=== PATIENT | female | born 1960 | race African-American/Black ===

== ENCOUNTER 2017-04-27 12:24 | Inpatient (IN) | payer OTHER ==
[2017-04-27] MEDS ORDERED: ALBUTEROL SO4 0.083% IH SOL 2.5 MG/3 ML VIAL.NEB. NEB ONE ×2 (13:21→15:23)
[2017-04-27] MEDS ORDERED: morphine CARPU-JECT 2 MG/1 ML DISP.SYRIN IVPUSH ONE ×2 (13:21→20:43)
[2017-04-27] MEDS ORDERED: predniSONE 20 MG TABLET (UD) PO ONE (13:25)
--- NOTE | 2017-04-27 13:27 | PDOC ---
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 The patient describes chest pain as pressure-like, radiating to her neck and arm, 10/10 in severity, associated with SOB and lightheadedness. Patient has been taking 8 Nitroglycerin tablets daily with no relief. Patient states her chest pain is consistent with the MIs she had in the past and presented to Dr. Dean office today. Patient was sent in by PCP for further evaluation. She denies headache or dizziness. She denies fever, chills, nausea, vomit, diarrhea or constipation. She denies dysuria, frequency, urgency or hematuria. Allergies: benztropine mesylate, haloperidol lactate, aspirin, penicillins Past surgical history: CABG Social history: Former smoker (quit 3 years ago) PCP: Dr. Em <Moira Arroyo - Last Filed: 04/27/17 16:32> - General History Source: Patient, Old Records Exam Limitations: No Limitations <Hung Gonzalez - Last Filed: 04/27/17 16:43> - General Chief Complaint: Chest Pain Stated Complaint: CHEST PAIN Time Seen by Provider: 04/27/17 12:28 Past History <Moira Arroyo - Last Filed: 04/27/17 16:32> - Past Medical History Asthma: Yes Cardiac Disorders: Yes (MD, HEART SX.) CVA: Yes (CVA x 7, LEFT SIDED WEAKNESS) COPD: Yes Diabetes: Yes GI Disorders: Yes (GERD) HTN: Yes Hypercholesterolemia: Yes Psychiatric Problems: Yes (ANXIETY) - Surgical History Cardiac Surgery: Yes (STENT: 2013) Orthopedic Surgery: Yes - Immunization History Td Vaccination: No Immunization Up to Date: No - Psycho/Social/Smoking Cessation Hx Anxiety: Yes Suicidal Ideation: No Smoking Status: Yes Smoking History: Former smoker Years of Tobacco Use: 0 Have you smoked in the past 12 months: Yes Number of Cigarettes Smoked Daily: 4 If you are a former smoker, when did you quit?: 2012 Cigars Per Day: 0 'Breaking Loose' booklet given: 10/04/14 Hx Alcohol Use: No Drug/Substance Use Hx: No Substance Use Type: None Hx Substance Use Treatment: No <Hung Gonzalez - Last Filed: 04/27/17 16:43> - Past Medical History Allergies/Adverse Reactions: Allergies Allergy/AdvReac Type Severity Reaction Status Date / Time benztropine mesylate Allergy Severe Swelling Verified 04/27/17 13:34 [From Cogentin] haloperidol lactate Allergy Severe Difficulty Verified 04/27/17 13:34 [From Haldol] Breathing aspirin Allergy Verified 04/27/17 13:34 Penicillins Allergy Verified 04/27/17 13:34 Home Medications: Ambulatory Orders Amlodipine Besylate 10 mg PO DAILY 12/20/15 Atorvastatin Ca [Lipitor] 80 mg PO DAILY 12/20/15 Chlorthalidone 25 mg PO DAILY 12/20/15 Exenatide Microspheres [Bydureon Pen] 1 amp IM WEEKLY 12/20/15 Gabapentin [Neurontin] 200 mg PO TID 12/20/15 Insulin Detemir [Levemir Flextouch] 50 units SQ BID 12/20/15 Metoprolol Succinate [Toprol Xl] 100 mg PO DAILY 12/20/15 Nitroglycerin 0.4 mg SL Q2H PRN 12/20/15 Ticagrelor [Brilinta] 90 mg PO BID 12/20/15 Divalproex *ER* [Depakote *ER* -] 500 mg PO HS 05/11/16 FENTANYL 25mcg PATCH [DURAGESIC 25mcg PATCH -] 1 each TD Q72H 05/11/16 Pantoprazole Sodium [Protonix -] 40 mg PO DAILY 05/11/16 Valsartan [Diovan] 40 mg PO DAILY #30 tablet 05/14/16 Review of Systems - Review of Systems Able to Perform ROS?: Yes Comments:: 04/27/17 13:40 GENERAL/CONSTITUTIONAL: No fever or chills. No weakness. HEAD, EYES, EARS, NOSE AND THROAT: No change in vision. No ear pain or discharge. No sore throat. CARDIOVASCULAR:+ chest pain. + shortness of breath. RESPIRATORY: No cough, wheezing, or hemoptysis. GASTROINTESTINAL: No nausea, vomiting, diarrhea or constipation. GENITOURINARY: No dysuria, frequency, or change in urination. MUSCULOSKELETAL: No joint or muscle swelling or pain. No neck or back pain. SKIN: No rash NEUROLOGIC: No headache, vertigo, loss of consciousness, or change in strength/ sensation. ENDOCRINE: No increased thirst. No abnormal weight change. HEMATOLOGIC/LYMPHATIC: No anemia, easy bleeding, or history of blood clots. ALLERGIC/IMMUNOLOGIC: No hives or skin allergy. <Rufina Arroyohel - Last Filed: 04/27/17 16:32> *Physical Exam - Vital Signs Last Vital Signs Temp Pulse Resp BP Pulse Ox 97.8 F 74 20 105/87 100 04/27/17 13:31 04/27/17 13:31 04/27/17 13:31 04/27/17 13:31 04/27/17 13:31 - Physical Exam Comments: 04/27/17 13:40 GENERAL: Awake, alert, and fully oriented, in no acute distress HEAD: No signs of trauma EYES: PERRLA, EOMI, sclera anicteric, conjunctiva clear ENT: Auricles normal inspection, hearing grossly normal, nares patent, oropharynx clear without exudates. Moist mucosa NECK: Normal ROM, supple, no lymphadenopathy, JVD, or masses LUNGS: + Diffuse expiratory wheezing. Breath sounds equal, clear to auscultation bilaterally. HEART: Regular rate and rhythm, normal S1 and S2, no murmurs, rubs or gallops ABDOMEN: Soft, nontender, normoactive bowel sounds. No guarding, no rebound. No masses EXTREMITIES: Normal range of motion, no edema. No clubbing or cyanosis. No cords, erythema, or tenderness NEUROLOGICAL: +Decreased sensation in LUE and LLE secondary to prior stroke. Cranial nerves II through XII grossly intact. Normal speech. Gait deferred. SKIN: Warm, Dry, normal turgor, no rashes or lesions noted. <Rufina Arroyohel - Last Filed: 04/27/17 16:32> Heart Score/ECG Review - History History: Highly suspicious - Electrocardiogram EKG: Non specific repolarization disturbance - Age Age: 45-65 - Risk Factors Based on the list above the patient has:: >/=3 risk factors or Hx atherosclerotic disease #1 ECG reviewed & interpreted by me at: 12:35 04/27/17 13:29 NSR 81, n ostd/santiago, TWI V1-V2 (new compared to last year), QTC 446 msec <Hung Gonzalez - Last Filed: 04/27/17 16:43> ED Treatment Course - LABORATORY CBC & Chemistry Diagram: 04/27/17 13:16 04/27/17 13:16 <Moira Arroyo - Last Filed: 04/27/17 16:32> - LABORATORY CBC & Chemistry Diagram: 04/27/17 13:16 04/27/17 13:16 - RADIOLOGY Radiology Studies Ordered: Category Date Time Status CHEST X-RAY PORTABLE* [RAD] Stat Radiology 04/27/17 13:16 Ordered <Hung Gonzalez - Last Filed: 04/27/17 16:43> Medical Decision Making - Medical Decision Making 04/27/17 15:14-- Dr. Sanders paged via phone answering service. 04/27/17 15:18-- Dr. Sierra paged via phone answering service. 04/27/17 15:26-- Dr. Sierra paged 04/27/17 15:32-- Dr. Sanders responded to the page and the patients case was discussed. 04/27/17 16:07-- Dr. Sierra paged via phone answering service. [employer] forwarded call to Dr. Talavera. Awaiting call back. 04/27/17 16:09-- Dr. Talavera responded the call and the patient's case was discussed. <Moira Arroyo - Last Filed: 04/27/17 16:32> - Medical Decision Making 04/27/17 13:25 A portion of this note was documented by scribe services under my direction. I have reviewed the details of the note, within reason, and agree with the documentation with the following case summary and management plan written by me. Patient treated in the ED. Nursing notes are reviewed and incorporated into the medical decision-making. Vital signs reviewed. Peripheral IV access obtained by the nurse, laboratory studies are drawn and sent, reviewed and interpreted by myself. 56 year old female with Past medical history of stroke, multiple times with residual left-sided deficit, anxiety, mood disorder, coronary disease status post MD, recent quadruple bypass several weeks ago at [facility], hypertension, hyperlipidemia, COPD, lumbar radiculopathy status post cervical spinal fusion, diabetes, GERD presents with chest pain. The patient reports 4 days of constant midsternal chest pressure reading down to her left upper extremity. She had associated shortness of breath consistent with her prior MIs. States that she has been taken multiple doses of her nitroglycerin tablets which have helped but the pain would return. She had saw her primary care doctor , Dr. Em, who sent the patient to the ED for further evaluation. The patient will most certainly need a rule out myocardial infarction workup, ACS workup. We'll give aspirin. EKG, chest x-ray, troponin and admission to the hospital. Patient is also noted to have bilateral wheezing, likely consistent with her COPD exacerbation. We'll give a dose of nebulizers and steroids. Chest x-ray. 04/27/17 16:16 CBC, BMP 04/27/17 13:16 04/27/17 13:16 CMP Sodium 140 mmol/L (136-145) 04/27/17 13:16 Potassium 5.2 mmol/L (3.5-5.1) H D 04/27/17 13:16 Chloride 108 mmol/L (98-107) H 04/27/17 13:16 Carbon Dioxide 24 mmol/L (21-32) 04/27/17 13:16 Anion Gap 8 (8-16) 04/27/17 13:16 BUN 48 mg/dL (7-18) H D 04/27/17 13:16 Creatinine 1.7 mg/dL (0.55-1.02) H D 04/27/17 13:16 Creat Clearance w eGFR 31.20 (>60) 04/27/17 13:16 Random Glucose 207 mg/dL (74-106) H 04/27/17 13:16 Calcium 9.2 mg/dL (8.5-10.1) 04/27/17 13:16 Phosphorus 4.1 mg/dL (2.5-4.9) D 04/27/17 13:16 Magnesium 2.6 mg/dL (1.8-2.4) H 04/27/17 13:16 Total Bilirubin 0.3 mg/dL (0.2-1.0) 07/10/17 13:16 AST 14 U/L (15-37) L 04/27/17 13:16 ALT 20 U/L (12-78) D 04/27/17 13:16 Alkaline Phosphatase 94 U/L (45-117) 04/27/17 13:16 Creatine Kinase 103 IU/L (26-192) 04/27/17 13:16 Troponin I 0.20 ng/ml (0.00-0.05) H 04/27/17 13:16 Total Protein 7.3 g/dl (6.4-8.2) 04/27/17 13:16 Albumin 3.9 g/dl (3.4-5.0) D 04/27/17 13:16 The patient's troponin 0.20. Given the circumstance, case was discussed with Dr. Cameron. She will return with recommendations. Patient is ALLERGIC to aspirin. Case discussed with Dr. Sanders. He requests that we admit the patient to [facility]. Case discussed with [facility]. Case discussed in detail with admitting physician including history, physical exam and ancillary studies. Admitting physician has assumed care for the patient, will follow all pending diagnostics and will complete the evaluation and treatment. 04/27/17 16:43 Dr. Cameron requests heparin bolus and drip. Patient reports that she has tongue swelling with aspirin. Will hold off from aspirin. <Hung Gonzalez - Last Filed: 04/27/17 16:43> *DC/Admit/Observation/Transfer - Attestations Scribe Attestion: 04/27/17 13:41 Documentation prepared by Moira Arroyo, acting as medical editor for Hung Gonzalez MD. <Moira Arroyo - Last Filed: 04/27/17 16:32> - Discharge Dispostion Admit: Yes <Hung Gonzalez - Last Filed: 04/27/17 16:43> Diagnosis at time of Disposition: Elevated troponin Chest pain Qualifiers: Chest pain type: unspecified Qualified Code(s): R07.9 - Chest pain, unspecified - Referrals Referrals: Saw Em MD [Primary Care Provider] -
[2017-04-27] MEDS ORDERED: ALBUTEROL SO4 2.5/IPRATROPIUM 0.5 INH SOL 3 ML VIAL.NEB. NEB ONE (13:36)
[2017-04-27] MEDS ORDERED: predniSONE 20 MG TABLET (UD) ONE (13:36)
[2017-04-27] MEDS ORDERED: morphine CARPU-JECT 2 MG/1 ML DISP.SYRIN ONE (13:36)
[2017-04-27 14:07] LABS: BASOPHIL 0.9 % (0-2.0); EOSINOPHIL 2.1 % (0-4.5); MCH 26.4 pg (25.7-33.7); MCHC 32.4 g/dl (32.0-36.0); MEAN CELL VOLUME 81.5 fl (80-96); MEAN PLT VOLUME 8.9 fl (7.5-11.1); NEUTROPHILS 52.8 % (42.8-82.8); PLATELET COUNT 234 K/MM3 (134-434); RDW 17.8 % (11.6-15.6)
[2017-04-27 14:23] LABS: ALBUMIN 3.9 g/dl (3.4-5.0); ANION GAP 8 (8-16); CALCIUM 9.2 mg/dL (8.5-10.1); CO2 24 mmol/L (21-32); CREATININE 1.7 mg/dL (0.55-1.02); GLUCOSE,RANDOM 207 mg/dL (74-106); MAGNESIUM 2.6 mg/dL (1.8-2.4); PHOSPHOROUS 4.1 mg/dL (2.5-4.9); SGOT/AST 14 U/L (15-37); SGPT/ALT 20 U/L (12-78)
[2017-04-27 14:27] LABS: ALK PHOS 94 U/L (45-117); BILIRUBIN,TOTAL 0.3 mg/dL (0.2-1.0); TOT PROT 7.3 g/dl (6.4-8.2)
--- NOTE | 2017-04-27 15:27 | EKG ---
Test Reason : Blood Pressure : / mmHG Vent. Rate : 081 BPM Atrial Rate : 081 BPM P-R Int : 152 ms QRS Dur : 100 ms QT Int : 384 ms P-R-T Axes : 079 -07 083 degrees QTc Int : 446 ms NORMAL SINUS RHYTHM POSSIBLE LEFT ATRIAL ENLARGEMENT CANNOT RULE OUT INFERIOR INFARCT , AGE UNDETERMINED ABNORMAL ECG WHEN COMPARED WITH ECG OF 11-MAY-2016 14:11, NO SIGNIFICANT CHANGE WAS FOUND Confirmed by SHIRIN HOFFMANN, JL ([id number]) on 04/27/2017 3:27:02 PM Referred By: Confirmed By:JL CARPIO MD
--- NOTE | 2017-04-27 16:30 | HP ---
CHIEF COMPLAINT: "My heart hurts" PCP: Dr. 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 Pain is midsternal to left sided, pressure-like, radiating to her L neck and arm, 10/10, associated with SOB, weakness, palpitations, lightheadedness, orthopnea, nausea, decreased appetite, increased dry cough and subjective weight gain. She has been taking 8 Nitroglycerin tablets daily with mild inttermittent alleviation of pain. Pain severity or quality is not affected with inspiration or position change and is consistent with pains she ahd during prior MIs. She states she recently wore a 21 d halter monitor which was mailed to her [place] blast hole driller 2 w ago for interpretation, She also states that her blast hole driller is considering either placing a defibrillator or putting her on heart transplant list. She denies arrythmia but reports occasionally fainting. She denies hemoptysis, leg pain, h /a, f/c, vomiting, diarrhea, constipation, dysuria, frequency, urgency or hematuria. Allergies: benztropine mesylate, haloperidol lactate, aspirin, penicillins ER course was notable for: (1) (2) (3) Recent Travel: denies PAST MEDICAL HISTORY: as above PAST SURGICAL HISTORY: as above Social History: lives with fiance. wheel chair bound Smoking: heavy smoker until 3 mo ago Alcohol: denies Drugs: denies Family History: CAD, IL, CHF on fathers side, breast CA on mothers side Allergies benztropine mesylate [From Cogentin] Allergy (Severe, Verified 04/27/17 13:34) Swelling haloperidol lactate [From Haldol] Allergy (Severe, Verified 04/27/17 13:34) Difficulty Breathing aspirin Allergy (Verified 04/27/17 13:34) SEVERE, Throat swelling Penicillins Allergy (Verified 04/27/17 13:34) HOME MEDICATIONS: Home Medications Medication Instructions Recorded Amlodipine Besylate 10 mg PO DAILY 12/20/15 Atorvastatin Ca [Lipitor] 80 mg PO DAILY 12/20/15 Chlorthalidone 25 mg PO DAILY 12/20/15 Exenatide Microspheres [Bydureon 1 amp IM WEEKLY 12/20/15 Pen] Gabapentin [Neurontin] 200 mg PO TID 12/20/15 Insulin Detemir [Levemir Flextouch] 50 units SQ BID 12/20/15 Metoprolol Succinate [Toprol Xl] 100 mg PO DAILY 12/20/15 Nitroglycerin 0.4 mg SL Q2H PRN 12/20/15 Ticagrelor [Brilinta] 90 mg PO BID 12/20/15 Divalproex *ER* [Depakote *ER* -] 500 mg PO HS 05/11/16 FENTANYL 25mcg PATCH [DURAGESIC 1 each TD Q72H 05/11/16 25mcg PATCH -] Pantoprazole Sodium [Protonix -] 40 mg PO DAILY 05/11/16 Valsartan [Diovan] 40 mg PO DAILY #30 tablet 05/14/16 REVIEW OF SYSTEMS CONSTITUTIONAL: Absent: fever, chills, HEENT: Absent: rhinorrhea, nasal congestion, throat pain CARDIOVASCULAR: Absent: peripheral edema RESPIRATORY: Absent: hemoptysis GASTROINTESTINAL: Absent: diarrhea, constipation, melena, hematochezia GENITOURINARY: Absent: dysuria PHYSICAL EXAMINATION Vital Signs - 24 hr 04/27/17 13:31 Temperature 97.8 F Pulse Rate 74 Respiratory 20 Rate Blood Pressure 105/87 O2 Sat by Pulse 100 Oximetry (%) GENERAL: Awake, alert, and fully oriented, in no moderate distress. HEAD: Normal with no signs of trauma. EYES: Pupils equal, round and reactive to light, extraocular movements intact, sclera anicteric, conjunctiva clear. No lid lag. EARS, NOSE, THROAT: Moist mucous membranes. NECK: supple without JVD LUNGS: diffusely restricted air movement, diffuse wheezes HEART: Regular rate and rhythm, S1 and S2 grade 3 sysolic murmur best heard at L upper sternal boarder ABDOMEN: obese Soft, milldy tender luq, not distended, normoactive bowel sounds , no guarding, no rebound MUSCULOSKELETAL: No CVA tenderness. UPPER EXTREMITIES: 2+ pulses, warm, well-perfused. No cyanosis. No clubbing. No peripheral edema. LOWER EXTREMITIES: 1+ pulses, warm, well-perfused. No calf tenderness. No peripheral edema. NEUROLOGICAL: Cranial nerves II-XII intact. Normal speech. RUE strength 5/5 sensation intact. LUE strength 4-/5, sensation absent. RLE strength 5/5 sensation intact. LLE strength 1/5, sensation absent. PSYCHIATRIC: Cooperative. Good eye contact. Appropriate mood and affect. SKIN: Warm, dry Laboratory Results - last 24 hr 04/27/17 04/27/17 13:16 13:16 WBC 7.0 RBC 4.63 Hgb 12.2 Hct 37.8 MCV 81.5 MCH 26.4 MCHC 32.4 RDW 17.8 H D Plt Count 234 MPV 8.9 Neutrophils % 52.8 Lymphocytes % 36.0 Monocytes % 8.2 Eosinophils % 2.1 Basophils % 0.9 Sodium 140 Potassium 5.2 H D Chloride 108 H Carbon Dioxide 24 Anion Gap 8 BUN 48 H D Creatinine 1.7 H D Creat Clearance w eGFR 31.20 Random Glucose 207 H Calcium 9.2 Phosphorus 4.1 D Magnesium 2.6 H Total Bilirubin 0.3 AST 14 L ALT 20 D Alkaline Phosphatase 94 Creatine Kinase 103 Troponin I 0.20 H Total Protein 7.3 Albumin 3.9 D ASSESSMENT/PLAN: This is a 56 year old female, with a PMH of Asthma, COPD(on 3L O2), IL x5, HTN, HLD, CAD (s/p stent in 2012 and recent quadruple CABG 3 mo ago s/p IL at [facility]), 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 Chest pain r/o NSTEMI vs CHF exacerbation ins etting of recent CABG and extensive cardiac comorbidities -EKG new t inversions in anterior/precordial leads -trop x1 0.2; will trend -CXR: good image quality, cardiomegaly, bibasilar congestion, vessel cephalization, increased interstitial markings, unable to adequately compare to prior image due to poor image quality -Dr Harris consulted: start hep drip with bolus, plavix IV, cant give asa due to allergy -give high dose statin -morphine and tylenol for pain -blood pressure on the low side, will hold IVF and diuresis for now -hold beta blockers and blood pressure meds -TTE -tele monitoring -BNP, tsh, lipid profile COPD exacerbation -possibly due to chf exacerbation -albuterol, symbicort. allergic to tiotropium -NC 7L -s/p 40 po prednisone in ED, will start medrol 40 q 8 -pulm consult -consider prophylactic abx KAREN on CKD -BUN double from baseline, creat 1.7 above baseline -prerenal, likley due to chf/hypoxia -will hold off on diuresis due to poor presumed poor EF and low BP IDDM -BGM achs -gentle sliding scale and home basal insulin bid -A1C p/d Dispo: tele Visit type - Emergency Visit Emergency Visit: Yes ED Registration Date: 04/27/17 Care time: The patient presented to the Emergency Department on the above date and was hospitalized for further evaluation of their emergent condition. - New Patient This patient is new to me today: Yes Date on this admission: 04/27/17 - Critical Care Critical Care patient: No
[2017-04-27] MEDS ORDERED: HEPARIN NA (PORCINE) 5,000 UNITS/ML 1ML VIAL IVPUSH ONE (16:42)
[2017-04-27 16:49] LABS: INR 0.95 (0.82-1.09); PROTHROMBIN TIME (PATIENT) 10.4 SEC (9.98-11.88)
[2017-04-27 16:51] LABS: ACTIVATED PTT 33.6 SECONDS (26.9-34.4)
[2017-04-27] MEDS ORDERED: ALBUTEROL SO4 0.083% IH SOL 2.5 MG/3 ML VIAL.NEB. NEB SCH (16:56)
[2017-04-27] MEDS ORDERED: HEPARIN NA (PORCINE) 5,000 UNITS/ML 1ML VIAL ONE (17:00)
[2017-04-27] MEDS ORDERED: HEPARIN INFUSION - 500 ML IVPB ONE (17:00)
--- NOTE | 2017-04-27 17:07 | CON.CARD ---
Cardiology Consult (text) - Consultation Consultation Note: CC: CP hpi: 56 y.o. smoker with PMH of CAD (s/p PCI x 5 - last 09/2015) and cabg (RESTREPO -LAD, SVG-OM, SVG-D1, SVG-PDA 11/2016), htn, hld, active tob, chronic atypical ( msk like) cp, multiple prior cva per patient with residual memory deficits and left sided weakness, ckd, uncontrolled dm, copd, depression/psych hx who p/w severe CP. Had cath at [facility] in 11/2016 for unstable angina and was noted to have multiple ISR --> referred to [facility] for CABG. CP worse with cough, deep inspiration, reproducible to palpation. CP radiates to her left neck and left arm. Feels similar to prior anginal pain. Pain 10/10 with associated tremors. Not relieved with morphine + sob No loc, pnd, orthopnea, le edema, palps, dizziness, bleeding. pmh: per hpi psh: nc social: +tob fam: nc ros: per hpi; no fever, nvd, rash, +left shoulder/neck joint pain, no vision changes, no cough, no nasal congestion Ambulatory Orders Amlodipine Besylate 10 mg PO DAILY 12/20/15 Atorvastatin Ca [Lipitor] 80 mg PO DAILY 12/20/15 Chlorthalidone 25 mg PO DAILY 12/20/15 Exenatide Microspheres [Bydureon Pen] 1 amp IM WEEKLY 12/20/15 Gabapentin [Neurontin] 200 mg PO TID 12/20/15 Insulin Detemir [Levemir Flextouch] 50 units SQ BID 12/20/15 Metoprolol Succinate [Toprol Xl] 100 mg PO DAILY 12/20/15 Nitroglycerin 0.4 mg SL Q2H PRN 12/20/15 Ticagrelor [Brilinta] 90 mg PO BID 12/20/15 Divalproex *ER* [Depakote *ER* -] 500 mg PO HS 05/11/16 FENTANYL 25mcg PATCH [DURAGESIC 25mcg PATCH -] 1 each TD Q72H 05/11/16 Pantoprazole Sodium [Protonix -] 40 mg PO DAILY 05/11/16 Valsartan [Diovan] 40 mg PO DAILY #30 tablet 05/14/16 Per [facility] records on ASA 81 mg/day, metoprolol tartrate 25 bid, atorvastatin 80 mg/day Current Medications Albuterol Sulfate (Ventolin 0.083% Nebulizer Soln -) 1 amp NEB Q4H JOHNNY Stop: 04/28/17 04:57 Budesonide/Formoterol Fumarate (Symbicort 160/4.5mcg -) 1 puff IH BID JOHNNY Heparin Sodium (Porcine) 25, (000 unit/ Sodium Chloride) 500 mls @ 20 mls/hr IV TITR JOHNNY; 1,000 UNIT/HR PRN Reason: Protocol Morphine Sulfate (Morphine Injection -) 2 mg IVPUSH Q4H PRN PRN Reason: PAIN Pantoprazole Sodium (Protonix -) 40 mg PO DAILY [facility] Vital Signs - 24 hr 04/27/17 13:31 Temperature 97.8 F Pulse Rate 74 Respiratory 20 Rate Blood Pressure 105/87 O2 Sat by Pulse 100 Oximetry (%) Intake & Output 04/25/17 04/26/17 04/27/17 04/28/17 07:59 07:59 07:59 07:59 Weight 230 lb in distress, agitated jvd flat, neck supple rrr nl s1, s2 2/6 murmur at apex diminished air movement, nl effort + bs soft nt nd ext with e/c/c no carotid bruit aaox3 no jaundice, diaphoresis + dp/pt CBC, BMP 04/27/17 13:16 04/27/17 13:16 Laboratory Tests 04/27/17 13:16 Magnesium 2.6 H Total Bilirubin 0.3 AST 14 L ALT 20 D Alkaline Phosphatase 94 Creatine Kinase 103 Troponin I 0.20 H Laboratory Tests 04/27/17 18:50 Troponin I 0.23 H 03/2017 labs [facility]: Cr 1.3, LDL 185, a1c 11 EKG: nsr, incomplete rbbb. possible inferior q's. no acute ischemic changes. tele sr Echo post CABG [facility]: bline nl EF 55%. nl rv. sev lae. mod MR, 1+ ar, mild-mod TR , 1+ phtn cath [facility] 11/2016: 20% LM, 60% pLAD ISR, 90% dLAD, 95% ISR OM1, 95% ISR, mRCA, 40 % dRCA ISR, 50% rpda, 70% rt post AV continuation. CP - patient high risk with severe pain. Initially started on heparin drip and recommended ER give plavix, asa, high dose statin. Morphine for pain since bp low and possibility for posterior DE. - Intermediate troponin in setting of KAREN, 2nd set of troponins flat with trend and CP atypical --> low suspcion for ACS. 2nd troponin drawn early and pt high risk and in severe pain so would con't heparin drip overnight to be conservative until formally ruled out for DE. However would take non-cardiac approach to treatment of pain. Would not recommend NTG. (Note pt with known hx of similar atypical cardiac pain) - repeat echo to evalute for new RWMA - ESR/CRP to evaluate for pericarditis. - utox - Evaluation for non-cardiac reasons for pain per pmd - copd contributing to sx's? CAD s/p multiple pci and cabg - recent ldl 185, a1c 11. h/o multiple ISR. concern for medication non- adherence. - patient was given asa at [facility], but states she is intolerant. would con't daily plavix instead and high dose atorvastatin. - con't prior outpatient metoprolol (per [facility] records) and can uptitrate as needed. - con't r/o DE as above. - repeat echo HTN - metoprolol and monitor HL - statin CVA - asa, plavix tobacco/copd - smoking cessation counseling - copd tx per pmd
[2017-04-27] MEDS: HEPARIN - 25,000 UNIT in SODIUM CHLORIDE 495 ML IV SCH (17:16)
--- NOTE | 2017-04-27 18:00 | HP ---
CHIEF COMPLAINT: sent by PCP for chest pain x SOB 4 days PCP: Dr. Em HISTORY OF PRESENT ILLNESS: 56 year old F with PMH multiple VA's (last one 3 months ago), HTN, HLD, CAD (s/ p stent), quadruple CABG, DM, who presented to the ED after being sent by primary care physician for chest pain and SOB x 4 days. As per patient, pain is on the L side of chest and feels like a heavy, knife-stabbing, burning pain that is a 10/10. It radiates to her neck and LUE and is non-positional. Pt took 7 nitroglycerins each of the four days prior to presentation, but it did not alleviate her pain. Patient also endorsed shortness of breath, double vision, headache. Denies fever , N/V/D. ER course was notable for: (1) Elevated troponin 0.2 (2) EKG: past inferior infarct, possible LA enlargement (3) Recent Travel: none PAST MEDICAL HISTORY: as above, COPD on 3L 02 at home, GERD, Anxiety, asthma PAST SURGICAL HISTORY: CABG s/p VA (3 months ago) Social History: Smokin/2 pack per day for 40 years- quit 3 months ago after had CABG Alcohol: denies Drugs: denies Family History: -All maternal aunts of VA -All sisters of VA, she is only one alive Allergies benztropine mesylate [From Cogentin] Allergy (Severe, Verified 04/27/17 13:34) Swelling haloperidol lactate [From Haldol] Allergy (Severe, Verified 04/27/17 13:34) Difficulty Breathing aspirin Allergy (Verified 04/27/17 13:34) - reaction: gets laryngeal edema Penicillins Allergy (Verified 04/27/17 13:34) HOME MEDICATIONS: Home Medications Medication Instructions Recorded Amlodipine Besylate 10 mg PO DAILY 12/20/15 Atorvastatin Ca [Lipitor] 80 mg PO DAILY 12/20/15 Chlorthalidone 25 mg PO DAILY 12/20/15 Exenatide Microspheres [Bydureon 1 amp IM WEEKLY 12/20/15 Pen] Gabapentin [Neurontin] 200 mg PO TID 12/20/15 Insulin Detemir [Levemir Flextouch] 50 units SQ BID 12/20/15 Metoprolol Succinate [Toprol Xl] 100 mg PO DAILY 12/20/15 Nitroglycerin 0.4 mg SL Q2H PRN 12/20/15 Ticagrelor [Brilinta] 90 mg PO BID 12/20/15 Divalproex *ER* [Depakote *ER* -] 500 mg PO HS 05/11/16 FENTANYL 25mcg PATCH [DURAGESIC 1 each TD Q72H 05/11/16 25mcg PATCH -] Pantoprazole Sodium [Protonix -] 40 mg PO DAILY 05/11/16 Valsartan [Diovan] 40 mg PO DAILY #30 tablet 05/14/16 We are holding: -Amlodipine, Chlorthalidone, bydureon, fentanyl (we are giving morphine), levemir, Diovan, norvasc Continue: lipitor, depakote, neurontin, protonix, toprol XL, brillinta REVIEW OF SYSTEMS CONSTITUTIONAL: Absent: fever, chills, diaphoresis, generalized weakness, malaise, loss of appetite, weight change HEENT: Absent: rhinorrhea, nasal congestion, throat pain, throat swelling, difficulty swallowing, mouth swelling, ear pain, eye pain, visual changes CARDIOVASCULAR: +Chest pain, +palpitations Absent: chest pain, syncope, palpitations, irregular heart rate, lightheadedness , peripheral edema RESPIRATORY: +expiratory wheezing, +SOB Absent: cough, shortness of breath, dyspnea with exertion, orthopnea, wheezing, stridor, hemoptysis GASTROINTESTINAL: +L sided abdominal pain Absent: abdominal pain, abdominal distension, nausea, vomiting, diarrhea, constipation, melena, hematochezia GENITOURINARY: Absent: dysuria, frequency, urgency, hesitancy, hematuria, flank pain, genital pain MUSCULOSKELETAL: Absent: myalgia, arthralgia, joint swelling, back pain, neck pain SKIN: Absent: rash, itching, pallor HEMATOLOGIC/IMMUNOLOGIC: Absent: easy bleeding, easy bruising, lymphadenopathy, frequent infections ENDOCRINE: Absent: unexplained weight gain, unexplained weight loss, heat intolerance, cold intolerance NEUROLOGIC: +L sided decreased strength 1/5 (past stroke deficit) Absent: headache, focal weakness or paresthesias, dizziness, unsteady gait, seizure, mental status changes, bladder or bowel incontinence PSYCHIATRIC: +anxiety Absent: anxiety, depression, suicidal or homicidal ideation, hallucinations. VITALS Vitals on Admission 04/27/17 13:31 Temperature 97.8 F Pulse Rate 74 Respiratory 20 Rate Blood Pressure 105/87 LABS Laboratory Tests 04/27/17 04/27/17 13:16 13:16 WBC 7.0 RBC 4.63 Hgb 12.2 Hct 37.8 Plt Count 234 Sodium 140 Potassium 5.2 H D Chloride 108 H BUN 48 H D Creatinine 1.7 H D Magnesium 2.6 H Total Bilirubin 0.3 AST 14 L Troponin I 0.20 H PHYSICAL EXAMINATION GENERAL: obese, anxious female in distress on 02 HEAD: Normal with no signs of trauma. EYES: Pupils equal, round and reactive to light, extraocular movements intact, sclera anicteric, conjunctiva clear. NECK: no JVD noted LUNGS: expiratory wheezing HEART: Regular rate and rhythm, normal S1 and S2 without murmur, rub or gallop. ABDOMEN: nondistended, tender in LUQ, normoactive bowel sounds, no guarding, no rebound, no masses. UPPER EXTREMITIES: 2+ radial pulses, warm, well-perfused. No cyanosis. No clubbing. No peripheral edema. LOWER EXTREMITIES: 2+ posterior tibial pulses, warm, well-perfused. No calf tenderness. No peripheral edema. NEUROLOGICAL: decreased motor strength (1/5) LLE (from past stroke) PSYCHIATRIC: Anxious ASSESSMENT/PLAN: 56 year old F with extensive cardiac history including CABG s/p VA (3 months ago ), 5 VA's, 7 CVA's, HTN, HLD, CAD (s/p stent), COPD on 3 L of oxygen at home, who was sent to the ED by her PCP for worsening chest pain and SOB for 4 days. Pt is admitted for possible ACS r/o NSTEMI. 1. Possible ACS r/o NSTEMI -First troponin 0.2, second one should be around 7pm, trend -EKG done: old inferior infarct, possible LA enlargement -CXR: diffuse interstitial markings -Follow up Stat ECHO -Follow up on lipid panel, CBC, BMP, Mg, Phosph -Received morphine 2 mg IV push for pain control -On Heparin drip -On Ticagrelor 90mg PO BID, atorvastatin 80mg PO HS, nitroglycerin 2%, metoprolol succinate 2. COPD Exacerbation -was on 3L 02 at home -expiratory wheezes heard -Follow up on ABG to determine CO2 retention -Albuterol nebs 0.083% -Continue symbicort -Consult Dr. Turner 3. DM -ISS - novolog -BGM -HbA1c (last year 10.5) follow up recent one -On 50 units Levemir at home, novolog add 2 units 4. DVT prophylaxis -On Heparin drip Visit type - Emergency Visit Emergency Visit: No - New Patient This patient is new to me today: No - Critical Care Critical Care patient: No
--- NOTE | 2017-04-27 18:36 | PN ---
Teaching Attending Note Name of Resident: Bhakti Owen ATTENDING PHYSICIAN STATEMENT I saw and evaluated the patient. I reviewed the resident's note and discussed the case with the resident. I agree with the resident's findings and plan as documented. SUBJECTIVE: This is a 56-year-old woman with a history of asthma, COPD, chronic hypoxic respiratory failure, CAD, MIs, stents, CABG, HTN, hyperlipidemia, CVA, type 2 DM, GERD, anxiety who was sent to the ER by her PCP for chest pain and SOB x 4 days. She describes left-sided chest pressure and stabbing pain radiating to her neck and left arm. She also has SOB and lightheadedness. She has taken SL nitroglycerin with temporary relief. Symptoms are similar to what she experienced with MIs in the past. OBJECTIVE: Vital Signs Period Temp Pulse Resp BP Sys/Maier Pulse Ox Last 24 Hr 97.8 F-98.3 F 74-94 20-20 105-115/56-87 99-100 HEART: S1S2, RRR LUNGS: Bilateral wheezes ABDOMEN: Obese, soft, non-tender, non-distended, normal BS EXTREMITIES: No edema ASSESSMENT AND PLAN: This is a 56-year-old woman with a history of asthma, COPD, chronic hypoxic respiratory failure, CAD, MIs, stents, CABG, HTN, hyperlipidemia, CVA, type 2 DM , GERD, anxiety who comes to the ER for evaluation of chest pain x 4 days. 1. Probable acute NSTEMI in patient with CAD, LA, stents and CABG - Admit to telemetry - Serial troponins, EKGs - Check BNP - Heparin IV drip started - Continue Toprol XL, Brilinta, Lipitor - No aspirin secondary to allergy - Morphine as needed for chest pain - Nitroglycerin if chest pain persists - Echocardiogram - Cardiology consult 2. Acute on chronic hypoxic respiratory failure - Continue oxygen to maintain saturation > 90% 3. Acute exacerbation of COPD - Start SoluMedrol - Continue oxygen - Caution with albuterol causing tachycardia in setting of acute LA 4. Stage 3 CKD - Probable cardiorenal syndrome 5. Ischemic cardiomyopathy with chronic systolic heart failure - EF 33% by nuclear stress 09/2015 - No evidence of acute heart failure - Continue Toprol XL - Hold Diovan, Chlorthalidone secondary to increasing creatinine and borderline low BP 6. Hypertension - Continue Toprol XL - Hold Norvasc, Chlorthalidone, Diovan secondary to borderline low BP 7. Hyperlipidemia - Continue Lipitor 8. Type 2 diabetes mellitus - Hold Bydureon - Continue Levemir - Fingersticks with Novolog sliding scale 9. GERD - Continue Protonix 10. Anxiety disorder 11. Left hemiparesis secondary to old CVA
[2017-04-27 18:39] VITALS: BMI 37.1
[2017-04-27] MEDS: morphine CARPU-JECT 2 MG/1 ML DISP.SYRIN IVPUSH PRN (18:56)
[2017-04-27] MEDS ORDERED: NITROGLYCERIN SUBLINGUAL 1/150 0.4 MG TAB SL ONE (19:43)
[2017-04-27] MEDS ORDERED: NITROGLYCERIN 2% OINTMENT - 1GM PACKET TD ONE (19:59)
[2017-04-27] MEDS ORDERED: METOPROLOL SUCCINATE 100 MG TAB.SR.24H (FP) PO SCH (20:00)
[2017-04-27] MEDS ORDERED: NITROGLYCERIN 25MG/D5W 250ML 250 ML IVPB SCH (21:00)
--- NOTE | 2017-04-27 21:01 | HOSP ---
Subjective - Review of Symptoms Events since last encounter: Paged for CP Pulmonary: Yes: Dyspnea, Other Cardiovascular: Yes: Chest Pain Physical Examination Vital Signs: Vital Signs Temperature 97.8 F 04/27/17 18:27 Pulse Rate 95 H 04/27/17 18:40 Respiratory Rate 18 04/27/17 18:50 Blood Pressure 115/56 04/27/17 18:40 O2 Sat by Pulse Oximetry (%) 99 04/27/17 18:50 Cardiovascular: Yes: Tachycardia Respiratory: Yes: On Nasal O2, SOB, Wheezes (b/l) Hospitalist Encounter Assessment: 56yo woman with extensive cardiac history (s/p MIs, stents, CABG 3mo ago), DMT2 , COPD, HTN, HLD, CAD, GERD who presented with severe chest pain x4days and admitted for ACS/NSTEMI r/o. On bedside evaluation, patient's chest pain was unrelieved by 1x morphine 2mg IVPUSH and 1x Nitroglycerin SL. Of note, patient has severe ASA allergy. #NSTEMI/ACS r/o -Repeated STAT EKG --> no acute changes from last EKG -Trending Troponin: 1st - 0.2, 2nd - 0.23, 3rd - pending -Ptt to monitor heparin therapeutic level -Continue Ticagrelor 90mg PO BID -Continue Metoprolol 100mg PO Daily -Continue Morphine 2mg IVPUSH Q4H PRN (s/p Nitroglycerin 0.4mg SL ONCE and 2% paste ONCE) Visit type - Emergency Visit Emergency Visit: No - New Patient This patient is new to me today: Yes Date on this admission: 04/28/17 - Critical Care Critical Care patient: No
[2017-04-27] MEDS ORDERED: INSULIN (NOVOLOG) ASPART 100 UNITS/ML 10ML VIAL ONE (21:42)
[2017-04-27] MEDS: GABAPENTIN 100 MG CAPSULE (FP) PO SCH (21:58)
[2017-04-27] MEDS ORDERED: TICAGRELOR 90 MG TABLET PO SCH (22:00)
[2017-04-27] MEDS ORDERED: DIVALPROEX NA *ER* EXTEND REL 500 MG TABLET.SA (FP) PO SCH (22:00)
[2017-04-27] MEDS ORDERED: BUDESONIDE/FORMETEROL FUMARATE 160/4.5 mcg INHALER IH SCH (22:00)
[2017-04-27] MEDS: INSULIN SLIDING SCALE (NOVOLOG) 1 VIAL SQ SCH (22:05)
[2017-04-28] MEDS: morphine CARPU-JECT 2 MG/1 ML DISP.SYRIN IVPUSH PRN ×2 (00:28→06:40)
[2017-04-28] MEDS: methylPREDNISolone NA SUCC 40 MG/1 ML VIAL IVPB SCH ×2 (01:53→09:29)
[2017-04-28] MEDS ORDERED: MAG HYDROX/AL HYDROX/SIMETH 30 ML UNIT-DOSE CUP PO ONE (02:22)
[2017-04-28] MEDS ORDERED: METOPROLOL TARTRATE 25 MG TABLET (FP) PO ONE (06:24)
[2017-04-28] MEDS: GABAPENTIN 100 MG CAPSULE (FP) PO SCH (06:40)
[2017-04-28] MEDS: INSULIN SLIDING SCALE (NOVOLOG) 1 VIAL SQ SCH (06:40)
[2017-04-28 08:14] LABS: ALBUMIN 3.9 g/dl (3.4-5.0); ANION GAP 10 (8-16); CALCIUM 9.4 mg/dL (8.5-10.1); CHOLESTEROL 279 mg/dL (50-200); CO2 24 mmol/L (21-32); MAGNESIUM 2.7 mg/dL (1.8-2.4); PHOSPHOROUS 2.9 mg/dL (2.5-4.9); SGOT/AST 14 U/L (15-37)
[2017-04-28 08:22] LABS: ALK PHOS 108 U/L (45-117); BILIRUBIN,TOTAL 0.3 mg/dL (0.2-1.0); CREATININE 1.4 mg/dL (0.55-1.02); LDL CHOLESTEROL (ONLY SJRH) 203 mg/dL (5-100); SGPT/ALT 20 U/L (12-78); THYROID STIMULATING HORMONE 0.28 uIU/ml (0.358-3.74); TOT PROT 7.9 g/dl (6.4-8.2)
[2017-04-28 08:43] LABS: MCHC 31.9 g/dl (32.0-36.0); MEAN CELL VOLUME 81.4 fl (80-96); MEAN PLT VOLUME 9.5 fl (7.5-11.1); PLATELET COUNT 242 K/MM3 (134-434); RDW 17.8 % (11.6-15.6); WHITE BLOOD COUNT 7.1 K/mm3 (4.0-10.0)
[2017-04-28 08:58] LABS: GLUCOSE,RANDOM 319 mg/dL (74-106)
[2017-04-28 09:27] VITALS: BP 163/100; PULSE 92; TEMP 98
[2017-04-28] MEDS: HEPARIN - 25,000 UNIT in SODIUM CHLORIDE 495 ML IV SCH (09:47)
[2017-04-28] MEDS ORDERED: CLOPIDOGREL BISULFATE 75 MG TABLET (FP) PO SCH (10:00)
[2017-04-28] MEDS ORDERED: PANTOPRAZOLE 40 MG TABLET (FP) PO SCH ×2 (10:00)
[2017-04-28] MEDS ORDERED: METOPROLOL SUCCINATE 25 MG TAB.SR.24H (FP) PO SCH (10:00)
--- NOTE | 2017-04-28 10:50 | PN ---
Progress Note (short form) - Note Progress Note: CC: CP Current Medications Atorvastatin Calcium (Lipitor -) 80 mg PO HS JOHNNY Clopidogrel Bisulfate (Plavix -) 75 mg PO DAILY JOHNNY Last Admin: 04/28/17 09:29 Dose: 75 mg Divalproex Sodium (Depakote *Er* -) 500 mg PO HS JOHNNY Last Admin: 04/27/17 22:26 Dose: 500 mg Gabapentin (Neurontin -) 200 mg PO TID JOHNNY Last Admin: 04/28/17 06:40 Dose: 200 mg Heparin Sodium (Porcine) 25, (000 unit/ Sodium Chloride) 500 mls @ 20 mls/hr IV TITR JOHNNY; 1,000 UNIT/HR PRN Reason: Protocol Last Admin: 04/28/17 09:47 Dose: 20 mls/hr Insulin Aspart (Novolog Vial Sliding Scale -) 1 vial SQ ACHS JOHNNY PRN Reason: Protocol Last Admin: 04/28/17 06:40 Dose: 10 units Methylprednisolone Sodium Succinate (Solu-Medrol -) 40 mg IVPB Q8H-IV JOHNNY Last Admin: 04/28/17 09:29 Dose: 40 mg Metoprolol Succinate (Toprol Xl -) 25 mg PO BID JOHNNY Last Admin: 04/28/17 09:29 Dose: 25 mg Morphine Sulfate (Morphine Injection -) 2 mg IVPUSH Q4H PRN PRN Reason: PAIN Last Admin: 04/28/17 06:40 Dose: 2 mg Pantoprazole Sodium (Protonix -) 40 mg PO DAILY [facility] Last Admin: 04/28/17 09:29 Dose: 40 mg Vital Signs - 24 hr 04/27/17 04/27/17 04/27/17 13:31 18:23 18:27 Temperature 97.8 F 98.3 F 97.8 F Pulse Rate 74 94 H 74 Pulse Rate [ Right Radial] Respiratory 20 20 18 Rate Blood Pressure 105/87 115/56 105/87 Blood Pressure [Left Arm] O2 Sat by Pulse 100 99 Oximetry (%) 04/27/17 04/27/17 04/27/17 18:40 18:41 18:50 Temperature Pulse Rate Pulse Rate [ 95 H Right Radial] Respiratory 20 18 18 Rate Blood Pressure Blood Pressure 115/56 [Left Arm] O2 Sat by Pulse 100 99 99 Oximetry (%) 04/27/17 04/27/17 04/28/17 21:00 22:00 02:00 Temperature 98.1 F 98.1 F Pulse Rate 105 H 86 Pulse Rate [ Right Radial] Respiratory 18 16 20 Rate Blood Pressure 158/94 153/85 Blood Pressure [Left Arm] O2 Sat by Pulse 99 Oximetry (%) 04/28/17 04/28/17 06:32 09:26 Temperature 98.0 F 98 F Pulse Rate 81 92 H Pulse Rate [ Right Radial] Respiratory 18 20 Rate Blood Pressure 150/90 163/100 Blood Pressure [Left Arm] O2 Sat by Pulse Oximetry (%) Intake & Output 04/26/17 04/27/17 04/28/17 04/29/17 07:59 07:59 07:59 07:59 Intake Total 200 Balance 200 Weight 230 lb in distress, agitated jvd flat, neck supple rrr nl s1, s2 2/6 murmur at apex diminished air movement, nl effort + bs soft nt nd ext with e/c/c no carotid bruit aaox3 no jaundice, diaphoresis + dp/pt CBC, BMP 04/28/17 05:35 04/28/17 05:35 Laboratory Tests 04/28/17 04/28/17 05:35 05:35 Hemoglobin A1c % 10.4 H D Magnesium 2.7 H Total Bilirubin 0.3 AST 14 L ALT 20 Alkaline Phosphatase 108 Creatine Kinase 112 Troponin I 0.38 H Albumin 3.9 Triglycerides 123 D Cholesterol 279 H D Total LDL Cholesterol 203 H HDL Cholesterol 54 D TSH 0.28 L 03/2017 labs [facility]: Cr 1.3, LDL 185, a1c 11 EKG: nsr, incomplete rbbb. possible inferior q's. no acute ischemic changes. tele sr Echo post CABG msh: bline nl EF 55%. nl rv. sev lae. mod MR, 1+ ar, mild-mod TR , 1+ phtn cath [facility] 11/2016: 20% LM, 60% pLAD ISR, 90% dLAD, 95% ISR OM1, 95% ISR, mRCA, 40 % dRCA ISR, 50% rpda, 70% rt post AV continuation. CP - patient high risk with severe pain. Initially started on heparin drip and recommended ER give plavix, asa, high dose statin. Morphine for pain since bp low and possibility for posterior NV. - Intermediate troponin in setting of KARNE, 2nd set of troponins flat with trend and CP atypical --> low suspcion for ACS. 2nd troponin drawn early and pt high risk and in severe pain so would con't heparin drip overnight to be conservative until formally ruled out for NV. However would take non-cardiac approach to treatment of pain. Would not recommend NTG. (Note pt with known hx of similar atypical cardiac pain) - repeat echo to evalute for new RWMA - ESR/CRP to evaluate for pericarditis. - utox - Evaluation for non-cardiac reasons for pain per pmd - copd contributing to sx's? CAD s/p multiple pci and cabg - recent ldl 185, a1c 11. h/o multiple ISR. concern for medication non- adherence. - patient was given asa at [facility], but states she is intolerant. would con't daily plavix instead and high dose atorvastatin. - con't prior outpatient metoprolol (per [facility] records) and can uptitrate as needed. - con't r/o NV as above. - repeat echo HTN - metoprolol and monitor - 04/28: add norvasc and uptitrate metoprolol HL - statin CVA - asa, plavix tobacco/copd - smoking cessation counseling - copd tx per pmd
[2017-04-28 11:00] LABS: TROPONIN I 0.38 ng/ml (0.00-0.05)
[2017-04-28] MEDS ORDERED: amLODIPine BESYLATE 5 MG TABLET (FP) PO SCH (11:00)
--- NOTE | 2017-04-28 13:11 | DS ---
Physical Exam: SUBJECTIVE: Patient seen and examined at bedside this morning. Overnight, she had indigestion and was given Mylanta which resolved her symptoms. As per nurse , she was up all night talking to her roommate and caused a commotion on the floor. During rounds, patient left AMA. OBJECTIVE: Vital Signs Period Temp Pulse Resp BP Sys/Maier Pulse Ox Last 24 Hr 97.8 F-98.3 F 74-105 16-20 105-163/56-100 96-100 PHYSICAL EXAM GENERAL: extremely anxious patient, combative HEAD: Normal with no signs of trauma. EYES: PERRL, extraocular movements intact, sclera anicteric, conjunctiva clear. NECK: Trachea midline, supple. LUNGS: expiratory wheezes bilaterally HEART: Regular rate and rhythm, S1, S2 without murmur, rub or gallop. ABDOMEN: LUQ tender to palpation EXTREMITIES: 2+ posterior tibial pulses, decreased sensation and strength in LUE , LLE from past stroke NEUROLOGICAL: Cranial nerves II through XII grossly intact PSYCH: anxious, combative, acting out LABS 04/27/17 04/27/17 04/27/17 13:16 13:16 13:16 WBC 7.0 Hgb 12.2 Hct 37.8 PTT (Actin FS) 33.6 BUN 48 H D Creatinine 1.7 H D Random Glucose 207 H Phosphorus 4.1 D Magnesium 2.6 H Troponin I 0.20 H Cholesterol Total LDL Cholesterol TSH 04/27/17 04/27/17 04/28/17 18:50 21:30 05:35 WBC 7.1 Hgb 11.9 Hct 37.2 PTT (Actin FS) 76.9 H D BUN Creatinine Random Glucose Phosphorus Magnesium Troponin I 0.23 H Cholesterol Total LDL Cholesterol TSH 04/28/17 04/28/17 05:35 05:35 WBC Hgb Hct PTT (Actin FS) 63.5 H BUN 43 H Creatinine 1.4 H Random Glucose 319 H* D Phosphorus 2.9 D Magnesium 2.7 H Troponin I 0.38 H Cholesterol 279 H D Total LDL Cholesterol 203 H TSH 0.28 L IMAGING 04/27/17: CXR: No evidence of acute pulmonary disease 04/27/17: EKG: possible LA enlargement, old inferior infarct, no significant change from last EKG (05/11/16) HOSPITAL COURSE: Date of Admission:04/27/17 Date of Discharge: 04/28/17 Admit diagnosis: Chest pain r/o ACS Pre-admission Course 56 year old F with PMH multiple TX's (last one 3 months ago), HTN, HLD, CAD (s/ p stent), quadruple CABG, DM, who presented to the ED after being sent by primary care physician for chest pain and SOB x 4 days. As per patient, pain is on the L side of chest and feels like a heavy, knife-stabbing, burning pain that is a 10/10. It radiates to her neck and LUE and is non-positional. Pt took 7 nitroglycerins each of the four days prior to presentation, but it did not alleviate her pain. Patient also endorsed shortness of breath, double vision, headache. Denies fever , N/V/D. Hospital course In the ED, patient was given IV morphine to help alleviate her chest pain. Once patient was admitted to the floor, she still complained of chest pain, so an additional dose of IV morphine was given and a repeat stat EKG was ordered. It showed no acute changes from the prior EKG. During this time, the patient's first 2 troponins were trended with values of 0.20 and 0.23 and Cardiology stated that patient's condition was most likely not due to ACS (due to the leveling off of the troponins). While the third troponin level was pending, patient became very combative against the medicine team during rounds. She began yelling and cursing at the group as the morphine level was not "high enough." She ripped out her IV line on her own, and ran out of the room. Patient then purposely fell on the ground in front of the team, by the elevator, still cursing. Patient was placed on a stretcher, brought back to the room, and started back on oxygen and telemetry. Patient subsequently walked off the floor AMA, though she was advised not to do so. Minutes to complete discharge: 30 Discharge Summary Reason For Visit: CHEST PAIN Current Active Problems Chest pain (Acute) Elevated troponin (Acute) History of CVA (cerebrovascular accident) (Acute) Left sided numbness (Acute) Left-sided weakness (Acute) - Instructions Referrals: Saw Em MD [Primary Care Provider] - Disposition: AGAINST MEDICAL ADVICE - Home Medications Comprehensive Discharge Medication List: Ambulatory Orders Amlodipine Besylate 10 mg PO DAILY 12/20/15 Atorvastatin Ca [Lipitor] 80 mg PO DAILY 12/20/15 Chlorthalidone 25 mg PO DAILY 12/20/15 Exenatide Microspheres [Bydureon Pen] 1 amp IM WEEKLY 12/20/15 Gabapentin [Neurontin] 200 mg PO TID 12/20/15 Insulin Detemir [Levemir Flextouch] 50 units SQ BID 12/20/15 Metoprolol Succinate [Toprol Xl] 100 mg PO DAILY 12/20/15 Nitroglycerin 0.4 mg SL Q2H PRN 12/20/15 Ticagrelor [Brilinta] 90 mg PO BID 12/20/15 Divalproex *ER* [Depakote *ER* -] 500 mg PO HS 05/11/16 FENTANYL 25mcg PATCH [DURAGESIC 25mcg PATCH -] 1 each TD Q72H 05/11/16 Pantoprazole Sodium [Protonix -] 40 mg PO DAILY 05/11/16 Valsartan [Diovan] 40 mg PO DAILY #30 tablet 05/14/16 This patient is new to me today: No Emergency Visit: No Critical Care patient: No - Discharge Referral Referred to [facility] No
[2017-04-28 13:35] LABS: C-REACTIVE PROTEIN 0.9 MG/DL (0.00-0.3)
--- NOTE | 2017-04-28 14:22 | PN ---
Teaching Attending Note Name of Resident: Bhakti Owen ATTENDING PHYSICIAN STATEMENT Called for evaluation of this patient. Per staff, patient was requesting immediate administration of IV morphine at the dose of 10 MG , shortly after she was witnessed taking narcotic medications that she had in her room . When attempted to talk or examine, she remained verbally abusive, shouting profanities . Patient was advised to stop in presence of security. She stated that she wants to leave AMA, proceeded to the elevator where she was witnessed to lower herself to the floor. She remained alert and continued threatening staff. She was then transferred to the stretcher, brought back to room , advised to calm down , but demanded 10mg of morphine NOW, or she is leaving . Explained that without further clinical assessment /exam , that would not be safe. She then proceeded to exit and left AMA .
[2017-04-28] MEDS ORDERED: ATORVASTATIN CA 20 MG TABLET (FP) PO SCH (22:00)
[2017-04-28] MEDS ORDERED: METOPROLOL SUCCINATE 50 MG TAB.SR.24H (FP) PO SCH (22:00)
--- NOTE | 2017-04-29 12:16 | EKG ---
Test Reason : Blood Pressure : / mmHG Vent. Rate : 098 BPM Atrial Rate : 098 BPM P-R Int : 184 ms QRS Dur : 104 ms QT Int : 352 ms P-R-T Axes : 074 -03 069 degrees QTc Int : 449 ms NORMAL SINUS RHYTHM POSSIBLE LEFT ATRIAL ENLARGEMENT INCOMPLETE RIGHT BUNDLE BRANCH BLOCK INFERIOR INFARCT (CITED ON OR BEFORE 27-APR-2017) ABNORMAL ECG WHEN COMPARED WITH ECG OF 27-APR-2017 12:32, NO SIGNIFICANT CHANGE WAS FOUND Confirmed by ANDRE SALMON MD ([id number]) on 04/29/2017 12:16:24 PM Referred By: Confirmed By:ANDRE SALMON MD
== END 2017-04-28 11:49 | disposition left against medical advice (07) | DRG 190 ==
LOC: JER 12:24 → JERBED 16:18 → J4W 18:50
PROVIDERS: ADMIT Internal Medicine; ATTEND Internal Medicine
DX: J44.1 Chronic obstructive pulmonary disease with (acute) exacerbation (principal); J96.21 Acute and chronic respiratory failure with hypoxia; I69.354 Hemiplegia and hemiparesis following cerebral infarction affecting left non-dominant side; I13.0 Hypertensive heart and chronic kidney disease with heart failure and stage 1 through stage 4 chronic kidney disease, or unspecified chronic kidney disease; I50.22 Chronic systolic (congestive) heart failure; R07.9 Chest pain, unspecified; I25.10 Atherosclerotic heart disease of native coronary artery without angina pectoris; Z98.61 Coronary angioplasty status; Z95.1 Presence of aortocoronary bypass graft; K21.9 Gastro-esophageal reflux disease without esophagitis; E78.5 Hyperlipidemia, unspecified; I25.5 Ischemic cardiomyopathy; F41.9 Anxiety disorder, unspecified; E11.22 Type 2 diabetes mellitus with diabetic chronic kidney disease; N18.3 Chronic kidney disease, stage 3 (moderate)
CPT/HCPCS: 36415; 71010-TC; 80053; 80061; 82550; 83036; 83721; 83735; 84100; 84443; 84484; 85025; 85027; 85610; 85651; 85730; 86140; 93005; 93010; 93306-TC; 94640; 99283-25; J1644

== ENCOUNTER 2018-11-10 11:27 | Inpatient (IN) | payer OTHER ==
[2018-11-10] MEDS ORDERED: methylPREDNISolone NA SUCC 125 MG/2 ML VIAL IVPB ONE (11:54)
[2018-11-10] MEDS ORDERED: MAGNESIUM SULF 50% (8.12 MEQ/2 ML-1 GM VIAL) IVPB ONE (11:55)
--- NOTE | 2018-11-10 11:57 | PDOC ---
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 The patient reports her left shoulder chest pain radiates across anterior left chest and wraps around under left breast to her left back. 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 Patient has been reportedly using her asthma inhaler and nebulizer treatment since 10/21/18 with minor relief. She reports an associated dry cough with her difficulty breathing. Patient notes she saw her doctor several days ago and was placed on unknown antibiotics. The patient denies headache and dizziness. Denies fever, chills, nausea, vomit, diarrhea and constipation. Denies dysuria, frequency, urgency and hematuria. Allergies: Penicillin, Aspirin, benztropine mesylate, and haloperidol lactate Past surgical history: CABG (2012) and orthopedic surgery. Social history: No reported PCP: Dr. Saw Em <Kadi Warner - Last Filed: 11/10/18 15:34> - General Chief Complaint: Shortness of Breath Stated Complaint: PCP SENT/SHORTNESS OF BREATH Time Seen by Provider: 11/10/18 11:41 Past History <Taylor Romero - Last Filed: 11/10/18 15:27> - Past Medical History Asthma: Yes Cardiac Disorders: Yes ([place] X5, S/P recent CABG in [place]) CVA: Yes (CVA X7 w/residual left sided weakness) COPD: Yes (O2 dependent 3l via [place]) Diabetes: Yes GI Disorders: Yes (GERD) HTN: Yes Hypercholesterolemia: Yes Psychiatric Problems: Yes (ANXIETY) - Surgical History Cardiac Surgery: Yes (CABG) GI Surgery: No Orthopedic Surgery: Yes - Immunization History Td Vaccination: No Immunization Up to Date: No - Suicide/Smoking/Psychosocial Hx Smoking Status: Yes Smoking History: Former smoker Years of Tobacco Use: 0 Have you smoked in the past 12 months: No Number of Cigarettes Smoked Daily: 4 If you are a former smoker, when did you quit?: 04/2016 Cigars Per Day: 0 Information on smoking cessation initiated: No 'Breaking Loose' booklet given: 10/04/14 Hx Alcohol Use: No Drug/Substance Use Hx: No Substance Use Type: None Hx Substance Use Treatment: No <Kadi Warner - Last Filed: 11/10/18 15:34> - Past Medical History Allergies/Adverse Reactions: Allergies Allergy/AdvReac Type Severity Reaction Status Date / Time benztropine mesylate Allergy Severe Swelling Verified 11/10/18 13:09 [From Cogentin] haloperidol lactate Allergy Severe Difficulty Verified 11/10/18 13:09 [From Haldol] Breathing aspirin Allergy Verified 11/10/18 13:09 Penicillins Allergy Verified 11/10/18 13:09 Home Medications: Ambulatory Orders Amlodipine Besylate 10 mg PO DAILY 12/20/15 Atorvastatin Ca [Lipitor] 80 mg PO DAILY 12/20/15 Chlorthalidone 25 mg PO DAILY 12/20/15 Exenatide Microspheres [Bydureon Pen] 1 amp IM WEEKLY 12/20/15 Gabapentin [Neurontin] 200 mg PO TID 12/20/15 Insulin Detemir [Levemir Flextouch] 50 units SQ BID 12/20/15 Metoprolol Succinate [Toprol Xl] 100 mg PO DAILY 12/20/15 Nitroglycerin 0.4 mg SL Q2H PRN 12/20/15 Ticagrelor [Brilinta] 90 mg PO BID 12/20/15 Divalproex *ER* [Depakote *ER* -] 500 mg PO HS 05/11/16 FENTANYL 25mcg PATCH [DURAGESIC 25mcg PATCH -] 1 each TD Q72H 05/11/16 Pantoprazole Sodium [Protonix -] 40 mg PO DAILY 05/11/16 Valsartan [Diovan] 40 mg PO DAILY #30 tablet 05/14/16 Review of Systems - Review of Systems Comments:: 11/10/18 14:35 GENERAL/CONSTITUTIONAL: No fever or chills. No weakness. HEAD, EYES, EARS, NOSE AND THROAT: No change in vision. No ear pain or discharge. No sore throat. GASTROINTESTINAL: No nausea, vomiting, diarrhea or constipation. GENITOURINARY: No dysuria, frequency, or change in urination. CARDIOVASCULAR: + chest pain and shortness of breath. RESPIRATORY: + dry cough, + SOB. No hemoptysis. MUSCULOSKELETAL: No joint or muscle swelling or pain. No neck or back pain. SKIN: No rash NEUROLOGIC: No headache, vertigo, loss of consciousness, or change in strength/ sensation. ENDOCRINE: No increased thirst. No abnormal weight change. HEMATOLOGIC/LYMPHATIC: No anemia, easy bleeding, or history of blood clots. ALLERGIC/IMMUNOLOGIC: No hives or skin allergy. <Nassef,Yomna - Last Filed: 11/10/18 15:34> *Physical Exam - Vital Signs Last Vital Signs Temp Pulse Resp BP Pulse Ox 98.2 F 97 H 18 158/89 99 11/10/18 11:55 11/10/18 14:52 11/10/18 14:52 11/10/18 14:52 11/10/18 14:52 <Taylor Romero - Last Filed: 11/10/18 15:27> - Vital Signs Last Vital Signs Temp Pulse Resp BP Pulse Ox 98.4 F 124 H 16 134/76 97 11/10/18 11:31 11/10/18 11:31 11/10/18 11:31 11/10/18 11:31 11/10/18 11:31 - Physical Exam Comments: 11/10/18 14:35 GENERAL: Awake, alert, and fully oriented, in no acute distress EYES: EOMI, sclera anicteric, conjunctiva clear ENT: Oropharynx clear without exudates. Moist mucosa NECK: Normal ROM, supple, no lymphadenopathy, JVD, or masses. LUNGS: + diffuse wheezing. + prolonged expiratory phase. no crackles, mildly increased WOB HEART: Tachycardic to 110 but regular, normal S1 and S2, no murmurs, rubs or gallops ABDOMEN: Soft, nontender, normoactive bowel sounds. No guarding, no rebound. No masses EXTREMITIES: Normal range of motion, no edema. No cords, erythema, or tenderness BACK: No midline spinal tenderness in cervical/thoracic/lumbar region NEUROLOGICAL: Normal speech, cranial nerves intact, equal strength and sensation b/l SKIN: midsternal, R neck, and L upper back scars c/d/i, well healed <Kadi Warner - Last Filed: 11/10/18 15:34> Moderate Sedation - Procedure Monitoring Vital Signs: Procedure Monitoring Vital Signs Temperature 98.2 F 11/10/18 11:55 Pulse Rate 97 H 11/10/18 14:52 Respiratory Rate 18 11/10/18 14:52 Blood Pressure 158/89 11/10/18 14:52 O2 Sat by Pulse Oximetry (%) 99 11/10/18 14:52 <Taylor Romero - Last Filed: 11/10/18 15:27> - Procedure Monitoring Vital Signs: Procedure Monitoring Vital Signs Temperature 98.4 F 11/10/18 11:31 Pulse Rate 124 H 11/10/18 11:31 Respiratory Rate 16 11/10/18 11:31 Blood Pressure 134/76 11/10/18 11:31 O2 Sat by Pulse Oximetry (%) 97 11/10/18 11:31 <Kadi Warner - Last Filed: 11/10/18 15:34> Heart Score/ECG Review #1 11/10/18 14:39 Twelve-lead EKG was performed and reviewed by me. Sinus tachycardia, rate 113. Normal axis. No ST elevation. <Kadi Warner - Last Filed: 11/10/18 15:34> ED Treatment Course - LABORATORY CBC & Chemistry Diagram: 11/10/18 13:08 11/10/18 13:08 - ADDITIONAL ORDERS Additional order review: Laboratory Results 11/10/18 11/10/18 11/10/18 13:08 13:08 13:08 PT with INR 10.40 INR 0.88 PTT (Actin FS) 26.8 VBG pH POC VBG pCO2 POC VBG pO2 Mixed VBG HCO3 Sodium 131 L Potassium 5.0 Chloride 92 L Carbon Dioxide 30 Anion Gap 9 BUN 32 H Creatinine 1.7 H Creat Clearance w eGFR 30.98 Random Glucose 621 H* Calcium 9.1 Magnesium 2.9 H Total Bilirubin 0.3 AST 10 L ALT 27 Alkaline Phosphatase 129 H Troponin I < 0.02 B-Natriuretic Peptide 2565.1 H Total Protein 7.6 Albumin 3.6 11/10/18 13:08 PT with INR INR PTT (Actin FS) VBG pH 7.31 L POC VBG pCO2 58.3 H POC VBG pO2 26.2 L Mixed VBG HCO3 28.7 H Sodium Potassium Chloride Carbon Dioxide Anion Gap BUN Creatinine Creat Clearance w eGFR Random Glucose Calcium Magnesium Total Bilirubin AST ALT Alkaline Phosphatase Troponin I B-Natriuretic Peptide Total Protein Albumin 11/10/18 13:08 RBC 3.96 MCV 87.5 MCHC 32.5 RDW 14.8 D MPV 9.1 Neutrophils % 78.3 D Lymphocytes % 16.8 D Monocytes % 4.5 Eosinophils % 0.1 D Basophils % 0.3 - Medications Given in the ED: ED Medications Discontinued Medications Generic Name Dose Route Start Last Admin Trade Name Freq PRN Reason Stop Dose Admin Albuterol/Ipratropium 1 amp 11/10/18 12:00 11/10/18 12:55 Duoneb - NEB 11/10/18 12:46 1 amp Q15M JOHNNY Administration Magnesium Sulfate 2 gm 11/10/18 11:55 11/10/18 12:35 Magnesium Sulfate IVPB 11/10/18 11:56 2 gm ONCE ONE Administration Methylprednisolone Sodium Succinate 125 mg 11/10/18 11:54 11/10/18 12:30 Solu-Medrol - IVPB 11/10/18 11:55 125 mg ONCE ONE Administration <Taylor Romero - Last Filed: 11/10/18 15:27> - LABORATORY CBC & Chemistry Diagram: 11/10/18 13:08 11/10/18 13:08 - RADIOLOGY Radiology Studies Ordered: Category Date Time Status CHEST X-RAY PORTABLE* [RAD] Stat Radiology 11/10/18 11:52 Ordered <Kadi Warner - Last Filed: 11/10/18 15:34> Medical Decision Making - Medical Decision Making 11/10/18 15:24 Dr. Mancia was paged at this time. requesting a call back. 11/10/18 15:27 Dr. Mancia called back and the patients case was discussed. <Taylor Romero - Last Filed: 11/10/18 15:27> - Medical Decision Making 11/10/18 14:44 58yo F hx asthma, CHF, CAD presents to the ED with many days of progressive SOB and CP. Exam with diffuse wheezing consistent with asthma exacerbation. Pt improved after back to back nebs, methypred, and Mg 2G. Good air movement at this time, but still some wheezing. Another neb has been ordered. CXR clear with no infiltrates. Labs with non AG hyperglycema to 630, corrected sodium 139. Plan to admit for asthma exacerbation. 11/10/18 15:[address] Shilpa Partida, pt admitted to med-surg inpt Case discussed in detail with admitting physician including history, physical exam and ancillary studies. Admitting physician has assumed care for the patient, will follow all pending diagnostics and will complete the evaluation and treatment. <Kadi Warner - Last Filed: 11/10/18 15:34> *DC/Admit/Observation/Transfer - Attestations Scribe Attestion: 11/10/18 15:29 Documentation prepared by Taylor Romero, acting as medical office coordinator for Kadi Warner MD, <Taylor Romero - Last Filed: 11/10/18 15:27> - Discharge Dispostion Decision to Admit order: Yes - Attestations Physician Attestion: 11/10/18 15:34 I, Dr. Kadi Warner MD, attest that this document has been prepared under my direction and personally reviewed by me in its entirety. I further attest, that it accurately reflects all work, treatment, procedures and medical decision -making performed by me. <Kadi Warner - Last Filed: 11/10/18 15:34> Diagnosis at time of Disposition: Asthma, Respiratory distress, Tachycardia - Discharge Dispostion Condition at time of disposition: Fair
[2018-11-10] MEDS ORDERED: MAGNESIUM 1GM/D5W - 2 GM/200 ML IVPB IVPB ONE (12:03)
[2018-11-10] MEDS ORDERED: methylPREDNISolone NA SUCC 125 MG/2 ML VIAL ONE (12:03)
[2018-11-10] MEDS ORDERED: ALBUTEROL SO4 2.5/IPRATROPIUM 0.5 INH SOL 3 ML VIAL.NEB. NEB ONE (12:03)
--- NOTE | 2018-11-10 12:47 | EKG ---
Test Reason : Blood Pressure : / mmHG Vent. Rate : 113 BPM Atrial Rate : 113 BPM P-R Int : 140 ms QRS Dur : 108 ms QT Int : 336 ms P-R-T Axes : 070 -02 069 degrees QTc Int : 460 ms SINUS TACHYCARDIA POSSIBLE LEFT ATRIAL ENLARGEMENT LEFT VENTRICULAR HYPERTROPHY INFERIOR INFARCT (CITED ON OR BEFORE 27-APR-2017) ABNORMAL ECG WHEN COMPARED WITH ECG OF 27-APR-2017 20:00, NO SIGNIFICANT CHANGE WAS FOUND Confirmed by LUIS ANTONIO HOFFMANN, ANDRE ([id number]) on 11/10/2018 12:47:34 PM Referred By: Confirmed By:ANDRE SALMON MD
[2018-11-10] MEDS: ALBUTEROL SO4 2.5/IPRATROPIUM 0.5 INH SOL 3 ML VIAL.NEB. NEB SCH ×3 (12:52→12:55)
[2018-11-10 13:27] LABS: VENOUS PC02 58.3 mmHg (38-52); VENOUS PH 7.31 (7.32-7.42); VENOUS PO2 26.2 mmHg (28-48)
[2018-11-10 13:29] LABS: BASO % 0.3 % (0-2.0); EOS % 0.1 % (0-4.5); HEMATOCRIT 34.6 % (32.4-45.2); HEMOGLOBIN 11.3 GM/dL (10.7-15.3); LYMPH % 16.8 % (8-40); MCH 28.5 pg (25.7-33.7); MCHC 32.5 g/dl (32.0-36.0); MEAN CELL VOLUME 87.5 fl (80-96); MEAN PLT VOLUME 9.1 fl (7.5-11.1); MONO % 4.5 % (3.8-10.2); NEUT % 78.3 % (42.8-82.8); PLATELET COUNT 300 K/MM3 (134-434); RBC 3.96 M/mm3 (3.60-5.2); RDW 14.8 % (11.6-15.6); WHITE BLOOD COUNT 13.2 K/mm3 (4.0-10.0)
[2018-11-10 13:46] LABS: INR 0.88 (0.83-1.09); PROTHROMBIN TIME (PATIENT) 10.4 SEC (9.7-13.0)
[2018-11-10 13:49] LABS: ACTIVATED PTT 26.8 SECONDS (25.2-36.5)
[2018-11-10 14:06] LABS: MAGNESIUM 2.9 mg/dL (1.8-2.4); N-TERMINAL BNP 2565.1 pg/ml (5-125)
[2018-11-10 14:15] LABS: ALBUMIN 3.6 g/dl (3.4-5.0); ALK PHOS 129 U/L (45-117); ANION GAP 9 MMOL/L (8-16); BILIRUBIN,TOTAL 0.3 mg/dL (0.2-1); BLOOD UREA NITROGEN 32 mg/dL (7-18); CALCIUM 9.1 mg/dL (8.5-10.1); CHLORIDE 92 mmol/L (98-107); CO2 30 mmol/L (21-32); CREATININE 1.7 mg/dL (0.55-1.3); SGOT/AST 10 U/L (15-37); SGPT/ALT 27 U/L (13-61); SODIUM 131 mmol/L (136-145); TOT PROT 7.6 g/dl (6.4-8.2)
[2018-11-10 14:43] LABS: GLUCOSE,RANDOM 621 mg/dL (74-106)
[2018-11-10] MEDS ORDERED: INSULIN REGULAR HUMAN 100 UNITS/ML *VIAL SQ ONE (14:54)
[2018-11-10] MEDS ORDERED: INSULIN REGULAR HUMAN 100 UNITS/ML *VIAL ONE (15:07)
[2018-11-10] MEDS ORDERED: ALBUTEROL SO4 0.5 % INH SOLN 2.5 MG/0.5 ML VIAL.NEB. NEB ONE (15:07)
[2018-11-10] MEDS ORDERED: ALBUTEROL SO4 0.083% IH SOL 2.5 MG/3 ML VIAL.NEB. NEB ONE (15:15)
[2018-11-10] MEDS ORDERED: ALBUTEROL SO4 2.5/IPRATROPIUM 0.5 INH SOL 3 ML VIAL.NEB. NEB PRN (15:30)
[2018-11-10] MEDS ORDERED: fentaNYL 25mcg/hr PATCH.TD72 TD SCH (15:30)
[2018-11-10] MEDS ORDERED: methylPREDNISolone NA SUCC 40 MG/1 ML VIAL IVPUSH SCH (15:30)
[2018-11-10] MEDS ORDERED: fentaNYL 25mcg/hr PATCH.TD72 ONE (15:58)
--- NOTE | 2018-11-10 16:39 | PN ---
Progress Note (short form) - Note Progress Note: PULMONARY CONSULTATION DICTATED 11/10/18 IMP ACUTE ON CHRONIC HYPOXEMIC/HYPERCAPNEIC RESPIRATORY FAILURE COPD EXACERBATION ? CHF ASHD S/P AL,CABG 4 VESSEL DISEASE ACUTE ON CHRONIC KIDNEY INJURY DM POORLY CONTROLLED H/O CVA HYPONATREMIA PLAN IV MEDROL INHALED BRONCHODILATORS O2 ?LASIX ABG ECHO GLYCEMIC CONTROL CHEST CT PFTS OUTPATIENT MONITOR LYTES,RENAL FUNCTION DR VAZQUEZ Problem List - Problems (1) Acute on chronic respiratory failure with hypoxia and hypercapnia Code(s): J96.21 - ACUTE AND CHRONIC RESPIRATORY FAILURE WITH HYPOXIA; J96.22 - ACUTE AND CHRONIC RESPIRATORY FAILURE WITH HYPERCAPNIA (2) Asthma Code(s): J45.909 - UNSPECIFIED ASTHMA, UNCOMPLICATED (3) Tachycardia Code(s): R00.0 - TACHYCARDIA, UNSPECIFIED (4) CAD (coronary artery disease) Code(s): I25.10 - ATHSCL HEART DISEASE OF [place] CORONARY ARTERY W/O ANG PCTRS (5) COPD exacerbation Code(s): J44.1 - CHRONIC OBSTRUCTIVE PULMONARY DISEASE W (ACUTE) EXACERBATION (6) Diabetes Code(s): E11.9 - TYPE 2 DIABETES MELLITUS WITHOUT COMPLICATIONS (7) HTN (hypertension) Code(s): I10 - ESSENTIAL (PRIMARY) HYPERTENSION (8) History of CVA (cerebrovascular accident) Code(s): Z86.73 - PRSNL HX OF TIA (TIA), AND CEREB INFRC W/O RESID DEFICITS (9) [id number] kidney injury Code(s): N17.9 - ACUTE KIDNEY FAILURE, UNSPECIFIED; N18.9 - CHRONIC KIDNEY DISEASE, UNSPECIFIED
--- NOTE | 2018-11-10 18:07 | CONS ---
DATE OF CONSULTATION: 11/10/2018 REFERRING PHYSICIAN: The patient is a 58-year-old black female known to me from previous hospitalization, with advanced COPD, asthma, on home O2 three liters, history of multiple hospitalizations, requiring intubations, ASHD, status post [place] x7, status post quadruple cardiac bypass graft at [place] in 2012, hypertension, hyperlipidemia, CVA with residual left-sided weakness, GERD, diabetes, anxiety, admitted to [facility] with complaint of shortness of breath, dyspnea on exertion, and chest pain. Patient states for the past month or so, she started noticing increasing shortness of breath, dyspnea on exertion, chest congestion, and chest discomfort. She apparently was prescribed a medication by her PMD, which she does not know the medication name, with minimal improvement. Today, symptoms worsened, at which time she presented to the emergency room. She denies any fevers, chills, nausea, vomiting, or diaphoresis. Denies hemoptysis. She states that her chest pain starts at left shoulder, radiating across the left chest. There is a history of tobacco use, approximately 1 to 2 packs per day for many years, quit 2 to 3 years ago. There is no history of occupational exposure to chemicals or fumes. There is no history of DVT or PE in the past. Past medical history, again, includes ASHD, status post quadruple CABG in 2013, status post [place], hypertension, hyperlipidemia, advanced COPD, asthma, on O2 three liters, CVA, GERD, diabetes, history of neck trauma, status post surgery, secondary to fall. REVIEW OF SYSTEMS: Positive shortness of breath, positive cough, positive bronchospasm, positive chest pain. No fever, no chills, no hemoptysis, no abdominal pain. No lower extremity edema. Medications prior to admission include amlodipine, Lipitor, chlorthalidone, Bydureon pen, gabapentin, insulin, metoprolol, nitroglycerin, Brilinta, Depakote, fentanyl, pantoprazole, and valsartan. Current medications include Diovan, Solu-Medrol, insulin, Levaquin, Neurontin, DuoNeb, Toprol, Norvasc, Nitrostat, Brilinta, Protonix, [place]. PHYSICAL EXAMINATION: General: The patient is a well-developed, well-nourished female, awake, alert, probably dyspneic but in no acute distress. Vital Signs: She is currently afebrile. Blood pressure is 134/76. Respiratory rate 20. HEENT: Normocephalic, atraumatic. Neck: Supple. Heart: Regular, S1, S2. Chest: Bilateral wheezes. Abdomen: Soft. Bowel sounds positive. Extremities: No cyanosis, edema. LABORATORY DATA: Venous blood gas 7.31, pCO2 of 58, a pO2 of 26, bicarbonate of 28. WBC 13.2, hemoglobin 11.3, hematocrit 34.6, with a platelet count of 300,000. Chemistries: BUN is 32, creatinine 1.7. BNP is 2565. Chest x-ray: Increased markings bilaterally. IMPRESSION: Acute on chronic hypoxemic hypercapnic respiratory failure, likely secondary to: 1. Mild decompensated chronic obstructive pulmonary disease with acute exacerbation. 2. History of congestive heart failure. 3. Acute kidney injury. 4. Arteriosclerotic heart disease, status post multiple myocardial infarctions, status post quadruple bypass. 5. Hypertension. 6. Diabetes. 7. History of spinal surgery. 8. History of cerebrovascular accident. 9. Hyperglycemia. PLAN: IV steroids, inhaled bronchodilators, supplemental O2. Monitor renal function. Glycemic control. Obtain CT scan of the chest. Check arterial blood gas. PFT as outpatient. Lasix as needed. Cardiac enzymes. Thank you. Will follow closely with you. JORGE A VAZQUEZ M.D. ELDA/[id number]
[2018-11-10] MEDS: methylPREDNISolone NA SUCC 40 MG/1 ML VIAL IVPUSH SCH ×2 (18:08→22:58)
[2018-11-10] MEDS ORDERED: methylPREDNISolone NA SUCC 40 MG/1 ML VIAL ONE (18:10)
[2018-11-10] MEDS: NITROGLYCERIN SUBLINGUAL 1/150 0.4 MG TAB SL PRN ×2 (20:12→22:58)
--- NOTE | 2018-11-10 20:44 | HOSP ---
Subjective - Review of Symptoms Events since last encounter: Hospitalist Encounter Notified by RN via microblog, that the patient reports having CP and has an elevated BP Subjective: Plan: Stat- EKG Stat- Trop I Probable transfer to Telemetry Cardiovascular: Yes: Chest Pain Physical Examination Vital Signs: Vital Signs Temperature 98.3 F 11/10/18 19:32 Pulse Rate 108 H 11/10/18 19:32 Respiratory Rate 18 11/10/18 19:32 Blood Pressure 142/77 11/10/18 19:32 O2 Sat by Pulse Oximetry (%) 99 11/10/18 14:52 Constitutional: Yes: Anxious, Mild Distress Eyes: Yes: WNL, Conjunctiva Clear, EOM Intact, PERRL HENT: Yes: WNL, Atraumatic, Normocephalic Neck: Yes: WNL, Supple, Trachea Midline Cardiovascular: Yes: Tachycardia, S1, S2, Other (CP reproducible on palpation) Respiratory: Yes: Diminished, On Nasal O2, Rhonchi, SOB, SOB on Exertion Gastrointestinal: Yes: WNL, Normal Bowel Sounds, Soft, Abdomen, Obese Breast(s): Yes: WNL Extremities: Yes: WNL Edema: No Peripheral Pulses WNL: Yes Neurological: Yes: WNL, Alert, Oriented, Cran Nerves II-XII Intact ...Motor Strength: WNL Psychiatric: Yes: WNL, Alert, Oriented Labs: CBC, BMP 11/10/18 13:08 11/10/18 13:08 Hospitalist Encounter Assessment: This is a 58 y/o woman with a PMHx of: CAD, [place] x7 s/p Stents x7, CABG 11/2016 ( [facility]), HTN, HLD, CVA (L-sided residual), IDDM (Insulin Pump), Seizures ( DM), Depression, Anxiety. Presents to the ED for Chest Tightness and SOB. Admitted for Asthma Exacerbation. Outcome: Troponin I < 0.02, EKG ST with inferior infarct, age undetermined (no change from prior study However, patient still reports CP after medication- NTG sl with patient's significant medical history and continued CP Will transfer patient to Telemetry Place Cardiology consult Trend Serial Enzymes Echo in am Pt has Asa allergy BGM > 500 Novolog SQ ordered, continue Levemir SQ BID Will continue to monitor RN to inform PCP of overnight's events
[2018-11-10] MEDS ORDERED: PT OWN MED DRAWER 7, Y5N ONE (21:50)
[2018-11-10] MEDS ORDERED: DIVALPROEX NA *ER* EXTEND REL 500 MG TABLET.SA (FP) PO SCH (22:00)
[2018-11-10] MEDS ORDERED: GABAPENTIN 100 MG CAPSULE (FP) PO SCH (22:00)
[2018-11-10] MEDS ORDERED: TICAGRELOR 90 MG TABLET PO SCH (22:00)
[2018-11-10] MEDS ORDERED: INSULIN (LEVEMIR) 100 UNITS/ML UNITS SQ SCH (22:00)
--- NOTE | 2018-11-10 22:20 | HP ---
Admitting History and Physical - Primary Care Physician PCP: Shilpa Mancia - Admission Chief Complaint: Chest Tightness, SOB History of Present Illness: This is a 58 y/o woman with a past medical history HTN, HLD, CAD, [place] s/p Stents x7, CABG ( [place], 17), CVA (L- residual), Depression, Anxiety. Who presents to the ED with chest heaviness x 1 month worse today, SOB. Patient reports having chest heaviness, burning sensation which radiates to her left arm and lumbar, increased with movement and cough. Patient reports having no recent f/u with Cardiology. Patient denies fever, chills, dizziness, palpitations, AP, N/V/D, constipation, dysuria. 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 Cardiovascular: Yes: CAD (s/p stent, restonisis and cardiac cath in 2012.), HTN , Hyperlipdemia Pulmonary: Yes: COPD Gastrointestinal: Yes: GERD Psych: Yes: Anxiety, Other (chronic pain syndrome) Musculoskeletal: Yes: Chronic low back pain, Other (lumbar radiculopathy) Endocrine: Yes: Diabetes Mellitus - Past Surgical History Past Surgical History: Yes: CABG, Stent - Smoking History Smoking history: Former smoker Have you smoked in the past 12 months: No Aproximately how many cigarettes per day: 4 If you are a former smoker, when did you quit?: 04/2016 - Alcohol/Substance Use Hx Alcohol Use: No - Social History ADL: Independent History of Recent Travel: No Home Medications - Allergies Allergies/Adverse Reactions: Allergies Allergy/AdvReac Type Severity Reaction Status Date / Time benztropine mesylate Allergy Severe Swelling Verified 11/10/18 13:09 [From Cogentin] haloperidol lactate Allergy Severe Difficulty Verified 11/10/18 13:09 [From Haldol] Breathing aspirin Allergy Verified 11/10/18 13:09 Penicillins Allergy Verified 11/10/18 13:09 - Home Medications Home Medications: Ambulatory Orders Atorvastatin Ca [Lipitor] 80 mg PO DAILY 12/20/15 Insulin Detemir [Levemir Flextouch] 50 units SQ BID 12/20/15 Metoprolol Succinate [Toprol Xl] 100 mg PO DAILY 12/20/15 Nitroglycerin 0.4 mg SL Q2H PRN 12/20/15 FENTANYL 25mcg PATCH [DURAGESIC 25mcg PATCH -] 1 each TD Q72H 05/11/16 Pantoprazole Sodium [Protonix -] 40 mg PO DAILY 05/11/16 Cyclobenzaprine HCl 10 mg PO BID PRN 11/10/18 Ferrous Sulfate 325 mg PO DAILY 11/10/18 Isosorbide Mononitrate 10 mg PO DAILY 11/10/18 Oxycodone HCl/Acetaminophen [Percocet 5-325 mg Tablet] 1 tab PO TID PRN Family Disease History - Family Disease History Family Disease History: Heart Disease: Father ([place] age 70's), Mother ( [place], breast- age 60's), Brother, Sister, [place]: Mother Review of Systems - Review of Systems Constitutional: reports: No Symptoms Eyes: reports: No Symptoms HENT: reports: No Symptoms Neck: reports: No Symptoms Cardiovascular: reports: Chest Pain, Shortness of Breath Respiratory: reports: Cough, SOB, SOB on Exertion Gastrointestinal: reports: No Symptoms Genitourinary: reports: No Symptoms Breasts: reports: No Symptoms Reported Musculoskeletal: reports: Back Pain Integumentary: reports: No Symptoms Neurological: reports: No Symptoms Endocrine: reports: No Symptoms Hematology/Lymphatic: reports: No Symptoms Psychiatric: reports: Anxiety Pain Intensity: 7 Physical Examination Vital Signs: Vital Signs Temperature 98.3 F 11/10/18 19:32 Pulse Rate 111 H 11/10/18 21:00 Respiratory Rate 18 11/10/18 21:00 Blood Pressure 154/78 11/10/18 21:00 O2 Sat by Pulse Oximetry (%) 99 11/10/18 14:52 Constitutional: Yes: Anxious, Mild Distress, Obese Eyes: Yes: WNL, Conjunctiva Clear, EOM Intact, PERRL HENT: Yes: WNL, Atraumatic Neck: Yes: WNL, Supple, Trachea Midline Cardiovascular: Yes: Tachycardia, S1, S2 Respiratory: Yes: Diminished, On Nasal O2, Rhonchi, SOB, SOB on Exertion Gastrointestinal: Yes: Normal Bowel Sounds, Soft, Abdomen, Obese. No: Tenderness, Tenderness, Epigastrium Breast(s): Yes: WNL Musculoskeletal: Yes: Back Pain Extremities: Yes: WNL Edema: No Peripheral Pulses WNL: Yes Integumentary: Yes: WNL Neurological: Yes: WNL ...Motor Strength: LUE (4/5), LLE (4/5), RUE (5/5), RLE (5/5) Psychiatric: Yes: WNL, Alert, Oriented Labs: CBC, BMP 11/10/18 13:08 11/10/18 13:08 Troponin, BNP 11/10/18 11/10/18 13:08 21:10 Troponin I < 0.02 < 0.02 B-Natriuretic Peptide 2565.1 H Intake & Output 11/08/18 11/09/18 11/10/18 11/11/18 23:59 23:59 23:59 23:59 Intake Total 250 Balance 250 Weight 89.358 kg Current Medications Generic Name Dose Route Start Last Admin Trade Name Freq PRN Reason Stop Dose Admin Amlodipine Besylate 10 mg 11/11/18 10:00 Norvasc - PO DAILY [facility] Atorvastatin Calcium 80 mg 11/11/18 22:00 Lipitor - PO HS JOHNNY Chlorthalidone 25 mg 11/11/18 10:00 [place] - PO DAILY [facility] Divalproex Sodium 500 mg 11/10/18 22:00 11/10/18 22:58 Depakote *Er* - PO 500 mg HS JOHNNY Administration Fentanyl 1 patch 11/10/18 15:30 11/10/18 16:00 Duragesic 25mcg Patch - TD 1 patch Q72H J[facility]Y Administration Gabapentin 200 mg 11/10/18 22:00 11/10/18 23:14 Neurontin - PO 200 mg TID JOHNNY Administration Levofloxacin 500 mg in 100 mls @ 100 mls/hr 11/10/18 15:30 11/10/18 16:00 Levaquin 500 Mg Premixed Ivpb - IVPB 100 mls/hr DAILY JOHNNY Administration Protocol Insulin Detemir 50 units 11/10/18 22:00 11/10/18 22:59 Levemir Vial SQ 50 units BID@0700,2200 J[facility] Administration Methylprednisolone Sodium Succinate 60 mg 11/10/18 17:45 11/11/18 02:07 Solu-Medrol - IVPUSH 60 mg Q6H-IV JOHNNY Administration Metoprolol Succinate 100 mg 11/11/18 10:00 Toprol Xl - PO DAILY [facility] Nitroglycerin 0.4 mg 11/10/18 15:27 11/10/18 22:58 Nitrostat - SL 0.4 mg Q2H PRN Administration FOR CHEST PAIN Pantoprazole Sodium 40 mg 11/11/18 10:00 Protonix - PO DAILY [facility] Ticagrelor 90 mg 11/10/18 22:00 11/10/18 22:58 Brilinta - PO 90 mg BID JOHNNY Administration Valsartan 40 mg 11/11/18 10:00 Diovan - PO DAILY [facility] Imaging - Results Chest X-ray: Report Reviewed, Image Reviewed Cat Scan: Report Reviewed, Image Reviewed EKG: Image Reviewed Problem List - Problems (1) Respiratory distress Code(s): R06.00 - DYSPNEA, UNSPECIFIED (2) COPD exacerbation Code(s): J44.1 - CHRONIC OBSTRUCTIVE PULMONARY DISEASE W (ACUTE) EXACERBATION (3) Chest pain Code(s): R07.9 - CHEST PAIN, UNSPECIFIED Qualifiers: Chest pain type: unspecified Qualified Code(s): R07.9 - Chest pain, unspecified (4) Tachycardia Code(s): R00.0 - TACHYCARDIA, UNSPECIFIED (5) Arvus-ax-fyapvlo kidney injury Code(s): N17.9 - ACUTE KIDNEY FAILURE, UNSPECIFIED; N18.9 - CHRONIC KIDNEY DISEASE, UNSPECIFIED (6) Asthma Code(s): J45.909 - UNSPECIFIED ASTHMA, UNCOMPLICATED (7) CAD (coronary artery disease) Code(s): I25.10 - ATHSCL HEART DISEASE OF [place] CORONARY ARTERY W/O ANG PCTRS (8) Diabetes Code(s): E11.9 - TYPE 2 DIABETES MELLITUS WITHOUT COMPLICATIONS (9) HTN (hypertension) Code(s): I10 - ESSENTIAL (PRIMARY) HYPERTENSION (10) Anxiety Code(s): F41.9 - ANXIETY DISORDER, UNSPECIFIED (11) History of CVA (cerebrovascular accident) Code(s): Z86.73 - PRSNL HX OF TIA (TIA), AND CEREB INFRC W/O RESID DEFICITS (12) Left-sided weakness Code(s): M62.81 - MUSCLE WEAKNESS (GENERALIZED) Assessment/Plan This is a 58 my/o woman admitted to Telemetry for Chest Pain, Tachycardia, Acute COPD Exacerbation for further evaluation of their emergent condition. Problems: Chest Pain Tachycardia Respiratory Distress Acute COPD Exacerabtion Asthma Acute on Chronic Kidney Injury Uncontrolled DM Hypertension Hyperlipidemia CVA Anxiety Depression Plan: Cardiovascular: Will Upgrade to Telemetry secondary to worsening CP and significant Cardiac Hx HEART Score 5 APRIL 3 Serial Enzymes Appreciate Cardiology Consult EKG- ST with inferior infarct unchanged from prior study Echo in am Continue NTG sl, prn Allergy Asa Continue home meds Monitor BMP, Mg Pulmonary: Pulmonology following Continue Medrol w/taper Albuterol nebs prn Consider Xopenex or Atrovent secondary to tachycardia Peak Flow BID O2 Monitor vitals Continue home meds Endocrinology: Uncontrolled Likely secondary to non-compliance vs infection vs medication BGMs ISS Appreciate Endocrinology consult Continue home meds HgbA1c in am Renal: Likely secondary to Uncontrolled DM Cr 1.7 at baseline Monitor BMP Avoid Nephrotoxic drugs Consider Nephrology consult if condition worsens Psych: Continue home meds FEN PO fluids as tolerated Replete lytes prn Low Na, Diabetic Diet DVT ppx OOB SCDs Heparin SQ Code Status: Full Code Dispo: Requires Inpatient Care Visit type - Emergency Visit Emergency Visit: Yes ED Registration Date: 11/10/18 Care time: The patient presented to the Emergency Department on the above date and was hospitalized for further evaluation of their emergent condition. - New Patient This patient is new to me today: Yes Date on this admission: 11/10/18 - Critical Care Critical Care patient: No
[2018-11-10] MEDS ORDERED: INSULIN (NOVOLOG) ASPART 100 UNITS/ML 10ML VIAL SQ ONE (22:24)
[2018-11-10] MEDS ORDERED: FAMOTIDINE 20 MG/50 ML IVPB 20 MG/50 ML MG IVPB ONE (23:47)
[2018-11-11] MEDS ORDERED: PT OWN MED DRAWER 7, Y5N ONE ×2 (00:27→10:22)
[2018-11-11 01:06] VITALS: BMI 32.8
[2018-11-11 01:48] LABS: URINE APPEARANCE CLEAR; URINE BILIRUBIN NEGATIVE (<2.0 mg/dL); URINE COLOR STRAW; URINE GLUCOSE (UA) 3+ (NEGATIVE); URINE KETONE NEGATIVE (NEGATIVE); URINE LEUK ESTERASE NEGATIVE (NEGATIVE); URINE NITRITE NEGATIVE (NEGATIVE); URINE PROTEIN 2+ (NEGATIVE); URINE UROBILINOGEN NEGATIVE mg/dL (0.2-1.0)
[2018-11-11 01:51] LABS: EPI CELLS RARE /HPF (FEW); URINE HYALINE CAST 1 /lpf; URINE MUCUS RARE
[2018-11-11] MEDS: methylPREDNISolone NA SUCC 40 MG/1 ML VIAL IVPUSH SCH ×4 (02:07→21:50)
[2018-11-11] MEDS ORDERED: NITROGLYCERIN SUBLINGUAL 1/150 0.4 MG TAB SL PRN (04:58)
[2018-11-11] MEDS ORDERED: INSULIN (NOVOLOG) ASPART 100 UNITS/ML 10ML VIAL SQ ONE (05:58)
[2018-11-11] MEDS: INSULIN (LEVEMIR) 100 UNITS/ML UNITS SQ SCH ×2 (06:20→21:50)
[2018-11-11] MEDS: GABAPENTIN 100 MG CAPSULE (FP) PO SCH ×3 (06:20→21:50)
[2018-11-11] MEDS ORDERED: FENTANYL PATCH WASTE TD PRN (07:18)
--- NOTE | 2018-11-11 09:04 | PN ---
Progress Note (short form) - Note Progress Note: patient seen and examined Chart reviewed OH ruled out coughing and wheezing I also discussed with patient's--primary PMD--agreed to continue fentanyl patch Vital Signs Temp 98.6 F 11/11/18 06:00 Pulse 93 H 11/11/18 06:00 Resp 13 11/11/18 06:00 BP 168/81 11/11/18 06:00 Pulse Ox 99 11/11/18 05:02 Intake & Output 11/10/18 11/10/18 11/11/18 11:59 23:59 11:59 Intake Total 250 300 Balance 250 300 Weight 200 lb 197 lb Intake: Oral 300 Oral Supplement 250 Other: Voiding Method Toilet Bedpan # Unmeasured Voids Void 2 Bowel Movement No # Bowel Movements 0 Height 5 ft 5 in 5 ft 5 in Body Mass Index (BMI) 33.3 32.8 Weight Measurement Method Standing Scale Weight Measurement Method Est/Stated by Patient Active Medications Amlodipine Besylate (Norvasc -) 10 mg PO DAILY [facility] Atorvastatin Calcium (Lipitor -) 80 mg PO HS [facility] Chlorthalidone (Hygroton -) 25 mg PO DAILY [facility] Divalproex Sodium (Depakote *Er* -) 500 mg PO HS [facility] Fentanyl (Duragesic 25mcg Patch -) 1 patch TD Q72H [facility] Gabapentin (Neurontin -) 200 mg PO TID [facility] Last Admin: 11/11/18 06:20 Dose: 200 mg Heparin Sodium (Porcine) (Heparin -) 5,000 unit SQ BID [facility] Levofloxacin (Levaquin 500 Mg Premixed Ivpb -) 500 mg in 100 mls @ 100 mls/hr IVPB DAILY [facility]; Protocol Insulin Aspart (Novolog Vial Sliding Scale -) 1 vial SQ ACHS [facility]; Protocol Insulin Detemir (Levemir Vial) 50 units SQ BID@0700,2200 [facility] Last Admin: 11/11/18 06:20 Dose: 50 units Methylprednisolone Sodium Succinate (Solu-Medrol -) 60 mg IVPUSH Q6H-IV [facility] Metoprolol Succinate (Toprol Xl -) 100 mg PO DAILY [facility] Miscellaneous (Duragesic Patch Waste) 1 each TD PRN PRN PRN Reason: PATCH REMOVAL Nitroglycerin (Nitrostat -) 0.4 mg SL Q2H PRN PRN Reason: FOR CHEST PAIN Pantoprazole Sodium (Protonix -) 40 mg PO DAILY [facility] Ticagrelor (Brilinta -) 90 mg PO BID [facility] Valsartan (Diovan -) 40 mg PO DAILY [facility] CBC, BMP 11/10/18 13:08 11/10/18 13:08 physical exam Alert and awake mild anxiety present No distress HEENT--- no JVD Lungs---Bilateral wheezes heart sounds regular abdominal-soft extremities-No edema Neuro--alert and awake assessment and plan Chest pain COPD exacerbation Anxiety Uncontrolled diabetes Opiate dependence Renal insufficiency Continue present care Monitor blood sugar Cardiology/pulmonary on case Endo consult check urine for drug screen DVT prophylaxis Will follow discussed with nursing Staff also
[2018-11-11] MEDS ORDERED: amLODIPine BESYLATE 10 MG TABLET (FP) PO SCH (10:00)
[2018-11-11] MEDS ORDERED: CHLORTHALIDONE 25 MG TABLET PO SCH (10:00)
[2018-11-11] MEDS ORDERED: PANTOPRAZOLE 40 MG TABLET (FP) PO SCH (10:00)
[2018-11-11] MEDS ORDERED: VALSARTAN 40 MG TABLET (FP) PO SCH (10:00)
[2018-11-11] MEDS: TICAGRELOR 90 MG TABLET PO SCH ×2 (10:26→21:50)
[2018-11-11] MEDS: PANTOPRAZOLE 40 MG TABLET (FP) PO SCH (10:36)
[2018-11-11] MEDS: VALSARTAN 40 MG TABLET (FP) PO SCH (10:36)
[2018-11-11] MEDS: amLODIPine BESYLATE 10 MG TABLET (FP) PO SCH (10:37)
[2018-11-11] MEDS: CHLORTHALIDONE 25 MG TABLET PO SCH (10:39)
[2018-11-11] MEDS: HEPARIN NA (PORCINE) 5,000 UNITS/ML 1ML VIAL SQ SCH ×2 (10:41→21:50)
--- NOTE | 2018-11-11 10:57 | CON.CARD ---
Cardiology Consult (text) - Consultation Consultation Note: CC: sob, cp hpi: 58 y.o. 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 Past few days noticed sob, cough, chest soreness/tightness. [place] like prior copd. CP worse with deep breath/cough/palpation. Sees me for cardio but poor f/u. pmh: per hpi psh: cabg social: +tob fam: nc ros: per hpi; no fever, nvd, rash, +left shoulder/neck joint pain, no vision changes, no gib hematuria dysuria Ambulatory Orders Home Medications Medication Instructions Recorded Atorvastatin Ca [Lipitor] 80 mg PO DAILY 12/20/15 Insulin Detemir [Levemir Flextouch] 50 units SQ BID 12/20/15 Metoprolol Succinate [Toprol Xl] 100 mg PO DAILY 12/20/15 Nitroglycerin 0.4 mg SL Q2H PRN 12/20/15 FENTANYL 25mcg PATCH [DURAGESIC 1 each TD Q72H 05/11/16 25mcg PATCH -] Pantoprazole Sodium [Protonix -] 40 mg PO DAILY 05/11/16 Cyclobenzaprine HCl 10 mg PO BID PRN 11/10/18 Ferrous Sulfate 325 mg PO DAILY 11/10/18 Isosorbide Mononitrate 10 mg PO DAILY 11/10/18 Oxycodone HCl/Acetaminophen 1 tab PO TID PRN 11/10/18 [Percocet 5-325 mg Tablet] Vital Signs Period Temp Pulse Resp BP Sys/Maier Pulse Ox Last 24 Hr 98.2 F-98.9 F 93-124 13-22 134-219/76-110 97-100 nad no jvd rrr nl s1, s2 no mrg diminished air movement, wheezing, nl effort + bs soft nt nd ext with e/c/c no carotid bruit aaox3 no jaundice, diaphoresis + dp/pt +chest wall tenderness Laboratory Last Values WBC 13.2 K/mm3 (4.0-10.0) H 11/10/18 13:08 RBC 3.96 M/mm3 (3.60-5.2) 11/10/18 13:08 Hgb 11.3 GM/dL (10.7-15.3) 11/10/18 13:08 Hct 34.6 % (32.4-45.2) 11/10/18 13:08 MCV 87.5 fl (80-96) 11/10/18 13:08 MCH 28.5 pg (25.7-33.7) 11/10/18 13:08 MCHC 32.5 g/dl (32.0-36.0) 11/10/18 13:08 RDW 14.8 % (11.6-15.6) D 11/10/18 13:08 Plt Count 300 K/MM3 (134-434) D 11/10/18 13:08 MPV 9.1 fl (7.5-11.1) 11/10/18 13:08 Absolute Neuts (auto) 10.3 K/mm3 (1.5-8.0) H 11/10/18 13:08 Neutrophils % 78.3 % (42.8-82.8) D 11/10/18 13:08 Lymphocytes % 16.8 % (8-40) D 11/10/18 13:08 Monocytes % 4.5 % (3.8-10.2) 11/10/18 13:08 Eosinophils % 0.1 % (0-4.5) D 11/10/18 13:08 Basophils % 0.3 % (0-2.0) 11/10/18 13:08 Nucleated RBC % 0 % (0-0) 11/10/18 13:08 PT with INR 10.40 SEC (9.7-13.0) 11/10/18 13:08 INR 0.88 (0.83-1.09) 11/10/18 13:08 PTT (Actin FS) 26.8 SECONDS (25.2-36.5) 11/10/18 13:08 VBG pH 7.31 (7.32-7.42) L 11/10/18 13:08 POC VBG pCO2 58.3 mmHg (38-52) H 11/10/18 13:08 POC VBG pO2 26.2 mmHg (28-48) L 11/10/18 13:08 Mixed VBG HCO3 28.7 meq/L (19-25) H 11/10/18 13:08 Sodium 131 mmol/L (136-145) L 11/10/18 13:08 Potassium 5.0 mmol/L (3.5-5.1) 11/10/18 13:08 Chloride 92 mmol/L (98-107) L 11/10/18 13:08 Carbon Dioxide 30 mmol/L (21-32) 11/10/18 13:08 Anion Gap 9 MMOL/L (8-16) 11/10/18 13:08 BUN 32 mg/dL (7-18) H 11/10/18 13:08 Creatinine 1.7 mg/dL (0.55-1.3) H 11/10/18 13:08 Creat Clearance w eGFR 30.98 (>60) 11/10/18 13:08 POC Glucometer > 600 UNITS (80-120) 11/10/18 21:26 Random Glucose 621 mg/dL (74-106) H* 11/10/18 13:08 Hemoglobin A1c % 15.0 % (4.2-6.3) H 11/11/18 05:30 Calcium 9.1 mg/dL (8.5-10.1) 11/10/18 13:08 Magnesium 2.9 mg/dL (1.8-2.4) H 11/10/18 13:08 Total Bilirubin 0.3 mg/dL (0.2-1) 11/10/18 13:08 AST 10 U/L (15-37) L 11/10/18 13:08 ALT 27 U/L (13-61) 11/10/18 13:08 Alkaline Phosphatase 129 U/L (45-117) H 11/10/18 13:08 Troponin I < 0.02 ng/ml (0.00-0.05) 11/10/18 21:10 B-Natriuretic Peptide 2565.1 pg/ml (5-125) H 11/10/18 13:08 Total Protein 7.6 g/dl (6.4-8.2) 11/10/18 13:08 Albumin 3.6 g/dl (3.4-5.0) 11/10/18 13:08 Urine Color Straw 11/11/18 01:18 Urine Appearance Clear 11/11/18 01:18 Urine pH 5.0 (5.0-8.0) 11/11/18 01:18 Ur Specific [place] 1.025 (1.010-1.035) 11/11/18 01:18 Urine Protein 2+ (NEGATIVE) H 11/11/18 01:18 Urine Glucose (UA) 3+ (NEGATIVE) H 11/11/18 01:18 Urine Ketones Negative (NEGATIVE) 11/11/18 01:18 Urine Blood Negative (NEGATIVE) 11/11/18 01:18 Urine Nitrite Negative (NEGATIVE) 11/11/18 01:18 Urine Bilirubin Negative (<2.0 mg/dL) 11/11/18 01:18 Urine Urobilinogen Negative mg/dL (0.2-1.0) 11/11/18 01:18 Ur Leukocyte Esterase Negative (NEGATIVE) 11/11/18 01:18 Urine WBC (Auto) 2 /hpf (3-5) 11/11/18 01:18 Urine RBC (Auto) 3 /hpf (0-3) 11/11/18 01:18 Ur Epithelial Cells Rare /HPF (FEW) 11/11/18 01:18 Hyaline Casts 1 /lpf 11/11/18 01:18 Urine Mucus Rare 11/11/18 01:18 Influenza A (Rapid) Negative 11/10/18 14:47 Influenza B (Rapid) Negative 11/10/18 14:47 Blood Type A POSITIVE 11/10/18 13:08 Antibody Screen Negative 11/10/18 13:08 ecg: sr, nl intervals, no ischemic changes tele: sr Echo post CABG msh: bline nl EF 55%. nl rv. sev lae. mod MR, 1+ ar, mild-mod TR , 1+ phtn cath [facility] 11/2016: 20% LM, 60% pLAD ISR, 90% dLAD, 95% ISR OM1, 95% ISR, mRCA, 40 % dRCA ISR, 50% rpda, 70% rt post AV continuation. ct chest: no chf a/p: 58 y.o. 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 CP -atypical cp, reproducible, seems msk from coughing/copd. Ce's neg, no signs acs. sob, acute copd: -no signs chf, agree with tx of copd -check updated echo CAD s/p multiple pci and cabg -as above -cont home meds, statin, bb, imdur. allergic to asa so continue brilinta HTN - cont bb, arb, ccb HL - on statin ckd: -cr at baseline
--- NOTE | 2018-11-11 12:22 | EKG ---
Test Reason : Blood Pressure : / mmHG Vent. Rate : 109 BPM Atrial Rate : 109 BPM P-R Int : 156 ms QRS Dur : 112 ms QT Int : 346 ms P-R-T Axes : 065 013 074 degrees QTc Int : 465 ms SINUS TACHYCARDIA RIGHT ATRIAL ENLARGEMENT POSSIBLE INFERIOR INFARCT (CITED ON OR BEFORE 27-APR-2017) ABNORMAL ECG WHEN COMPARED WITH ECG OF 10-NOV-2018 11:47, NO SIGNIFICANT CHANGE WAS FOUND Confirmed by ANDRES HOFFMANN, CINTHIA ([id number]) on 11/11/2018 12:22:40 PM Referred By: Confirmed By:CINTHIA CAMPOS MD
[2018-11-11] MEDS ORDERED: INSULIN (NOVOLOG) ASPART 100 UNITS/ML 10ML VIAL ONE (12:41)
[2018-11-11] MEDS: INSULIN SLIDING SCALE (NOVOLOG) 1 VIAL SQ SCH ×3 (12:48→21:50)
--- NOTE | 2018-11-11 13:21 | PN ---
Progress Note (short form) - Note Progress Note: PULMONARY States breathing better today. Still some cough and wheezing. CT chest showing nonspecific CAROLYN opacity. Vital Signs Period Temp Pulse Resp BP Sys/Maier Pulse Ox Last 24 Hr 98.3 F-98.9 F 92-111 13-20 134-168/77-110 98-99 Intake & Output 11/08/18 11/09/18 11/10/18 11/11/18 23:59 23:59 23:59 23:59 Intake Total 250 300 Balance 250 300 Weight 89.358 kg Gen: NAD at rest Heart: RRR Lung: bilateral rhonchi, wheezes Abd: soft, nontender Ext: no edema CBC, BMP 11/10/18 13:08 11/10/18 13:08 Active Medications Amlodipine Besylate (Norvasc -) 10 mg PO DAILY [facility] Last Admin: 11/11/18 10:37 Dose: 10 mg Atorvastatin Calcium (Lipitor -) 80 mg PO HS [facility] Chlorthalidone (Hygroton -) 25 mg PO DAILY [facility] Last Admin: 11/11/18 10:39 Dose: 25 mg Divalproex Sodium (Depakote *Er* -) 500 mg PO HS [facility] Fentanyl (Duragesic 25mcg Patch -) 1 patch TD Q72H [facility] Gabapentin (Neurontin -) 200 mg PO TID [facility] Last Admin: 11/11/18 06:20 Dose: 200 mg Heparin Sodium (Porcine) (Heparin -) 5,000 unit SQ BID [facility] Last Admin: 11/11/18 10:41 Dose: 5,000 unit Levofloxacin (Levaquin 500 Mg Premixed Ivpb -) 500 mg in 100 mls @ 100 mls/hr IVPB DAILY [facility]; Protocol Last Admin: 11/11/18 10:39 Dose: 100 mls/hr Insulin Aspart (Novolog Vial Sliding Scale -) 1 vial SQ ACHS [facility]; Protocol Last Admin: 11/11/18 12:48 Dose: 5 units Insulin Detemir (Levemir Vial) 50 units SQ BID@0700,2200 [facility] Last Admin: 11/11/18 06:20 Dose: 50 units Methylprednisolone Sodium Succinate (Solu-Medrol -) 60 mg IVPUSH Q6H-IV [facility] Last Admin: 11/11/18 10:40 Dose: 60 mg Metoprolol Succinate (Toprol Xl -) 100 mg PO DAILY [facility] Last Admin: 11/11/18 10:37 Dose: 100 mg Miscellaneous (Duragesic Patch Waste) 1 each TD PRN PRN PRN Reason: PATCH REMOVAL Nitroglycerin (Nitrostat -) 0.4 mg SL Q2H PRN PRN Reason: FOR CHEST PAIN Pantoprazole Sodium (Protonix -) 40 mg PO DAILY [facility] Last Admin: 11/11/18 10:36 Dose: 40 mg Ticagrelor (Brilinta -) 90 mg PO BID [facility] Last Admin: 11/11/18 10:26 Dose: 90 mg Valsartan (Diovan -) 40 mg PO DAILY [facility] Last Admin: 11/11/18 10:36 Dose: 40 mg A/P Acute on Chronic Hypoxic and Hypercapneic Respiratory Failure Acute COPD Exacerbation CAD s/p CABG Acute on Chronic Renal Failure DM h/o CVA Nonspecific Lung Nodule - will decrease medrol for better glucose control - inhaled bronchodilators - O2 to keep Spo2 >90% - monitor urine output, creatinine - glucose control while on systemic steroids - outpt PFTs and f/u - DVT prophylaxis - will need outpt f/u of lung nodule
--- NOTE | 2018-11-11 14:09 | ECHO ---
Name: TENNILLE CARPIO Exam:Adult Echocardiogram Study Date: 11/11/2018 08:26 AM Age: 58 yrs Reason For Study: LV Function Height: 65 in Weight: 200 lb BSA: 2.0 m2 MMode/2D Measurements & Calculations IVSd: 1.0 cm Ao root diam: 2.8 cm LVIDd: 4.2 cm ACS: 1.9 cm LVIDs: 3.3 cm LVPWd: 1.0 cm EDV(Teich): 78.6 ml LVOT diam: 1.9 cm ESV(Teich): 43.8 ml Doppler Measurements & Calculations MV V2 max: 644.1 cm/sec Med Peak E' Anjum: 5.3 cm/sec MV max P.2 mmHg Lat Peak E' Anjum: 11.0 cm/sec MV V2 mean: 477.2 cm/sec MV mean P.8 mmHg MV V2 VTI: 213.8 cm Procedure A complete two-dimensional transthoracic echocardiogram was performed (2D, M-mode, Doppler and color flow Doppler). The study was technically difficult with many images being suboptimal in quality. Left Ventricle The left ventricular size, thickness and function are normal. The left ventricular ejection fraction is normal. Ejection Fraction = 55-60%. No regional wall motion abnormalities noted. Right Ventricle The right ventricle is not well visualized. Atria The left atrial size is normal. Right atrium not well visualized. Mitral Valve There is mild mitral regurgitation. Tricuspid Valve No tricuspid regurgitation. There was insufficient TR detected to calculate RV systolic pressure. Aortic Valve No hemodynamically significant valvular aortic stenosis. Mild aortic regurgitation. Pulmonic Valve There is no pulmonic valvular regurgitation. Great Vessels The aortic root is normal size. Pericardium/Pleura There is no pericardial effusion. Interpretation Summary The study was technically difficult with many images being suboptimal in quality. The left ventricular size, thickness and function are normal. The right ventricle is not well visualized. There is mild mitral regurgitation. Mild aortic regurgitation. MD Greg Sierra 11/11/2018 02:09 PM
[2018-11-11] MEDS ORDERED: DIVALPROEX NA *ER* EXTEND REL 500 MG TABLET.SA (FP) PO SCH (22:00)
[2018-11-11] MEDS ORDERED: ATORVASTATIN CA 80 MG TABLET (FP) PO SCH ×2 (22:00)
[2018-11-12] MEDS: methylPREDNISolone NA SUCC 40 MG/1 ML VIAL IVPUSH SCH ×2 (02:14→09:43)
[2018-11-12] MEDS: GABAPENTIN 100 MG CAPSULE (FP) PO SCH ×3 (05:44→21:17)
[2018-11-12] MEDS: INSULIN SLIDING SCALE (NOVOLOG) 1 VIAL SQ SCH ×3 (06:05→16:46)
[2018-11-12] MEDS: INSULIN (LEVEMIR) 100 UNITS/ML UNITS SQ SCH ×2 (06:05→21:16)
[2018-11-12] MEDS ORDERED: PT OWN MED DRAWER 7, Y5N ONE (08:29)
[2018-11-12] MEDS: HEPARIN NA (PORCINE) 5,000 UNITS/ML 1ML VIAL SQ SCH ×2 (09:43→21:16)
[2018-11-12] MEDS: amLODIPine BESYLATE 10 MG TABLET (FP) PO SCH (09:43)
[2018-11-12] MEDS: PANTOPRAZOLE 40 MG TABLET (FP) PO SCH (09:43)
[2018-11-12] MEDS: CHLORTHALIDONE 25 MG TABLET PO SCH (09:44)
[2018-11-12] MEDS: VALSARTAN 40 MG TABLET (FP) PO SCH (09:44)
[2018-11-12] MEDS: TICAGRELOR 90 MG TABLET PO SCH ×2 (09:44→21:16)
--- NOTE | 2018-11-12 10:40 | PN ---
Progress Note (short form) - Note Progress Note: pt seen/ examined feels better anxious all f/u noted / appreciated blood sugar better Vital Signs Temp 98.4 F 11/12/18 04:00 Pulse 73 11/12/18 04:00 Resp 14 11/12/18 04:00 BP 138/83 11/12/18 04:00 Pulse Ox 100 11/11/18 20:14 Intake & Output 11/11/18 11/11/18 11/12/18 11:59 23:59 11:59 Intake Total 300 590 240 Output Total 320 Balance 300 270 240 Intake: IV 20 S/L 20 IVPB 150 Oral 300 420 240 Output: Urine 320 Void 320 Other: Voiding Method Diaper Diaper # Unmeasured Voids Void 1 Bowel Movement No Active Medications Amlodipine Besylate (Norvasc -) 10 mg PO DAILY [facility] Last Admin: 11/12/18 09:43 Dose: 10 mg Atorvastatin Calcium (Lipitor -) 80 mg PO HS [facility] Last Admin: 11/11/18 22:06 Dose: 80 mg Chlorthalidone (Hygroton -) 25 mg PO DAILY [facility] Last Admin: 11/12/18 09:44 Dose: 25 mg Divalproex Sodium (Depakote *Er* -) 500 mg PO HS [facility] Last Admin: 11/11/18 21:50 Dose: 500 mg Fentanyl (Duragesic 25mcg Patch -) 1 patch TD Q72H [facility] Gabapentin (Neurontin -) 200 mg PO TID [facility] Last Admin: 11/12/18 05:44 Dose: 200 mg Heparin Sodium (Porcine) (Heparin -) 5,000 unit SQ BID [facility] Last Admin: 11/12/18 09:43 Dose: 5,000 unit Levofloxacin (Levaquin 500 Mg Premixed Ivpb -) 500 mg in 100 mls @ 100 mls/hr IVPB DAILY [facility]; Protocol Last Admin: 11/12/18 09:46 Dose: 100 mls/hr Insulin Aspart (Novolog Vial Sliding Scale -) 1 vial SQ ACHS [facility]; Protocol Last Admin: 11/12/18 06:05 Dose: 5 units Insulin Detemir (Levemir Vial) 50 units SQ BID@0700,2200 [facility] Last Admin: 11/12/18 06:05 Dose: 50 units Methylprednisolone Sodium Succinate (Solu-Medrol -) 60 mg IVPUSH Q6H-IV JOHNNY Last Admin: 11/12/18 09:43 Dose: 60 mg Metoprolol Succinate (Toprol Xl -) 100 mg PO DAILY [facility] Last Admin: 11/12/18 09:44 Dose: 100 mg Miscellaneous (Duragesic Patch Waste) 1 each TD PRN PRN PRN Reason: PATCH REMOVAL Nitroglycerin (Nitrostat -) 0.4 mg SL Q2H PRN PRN Reason: FOR CHEST PAIN Pantoprazole Sodium (Protonix -) 40 mg PO DAILY [facility] Last Admin: 11/12/18 09:43 Dose: 40 mg Ticagrelor (Brilinta -) 90 mg PO BID [facility] Last Admin: 11/12/18 09:44 Dose: 90 mg Valsartan (Diovan -) 40 mg PO DAILY [facility] Last Admin: 11/12/18 09:44 Dose: 40 mg CBC, BMP 11/10/18 13:08 11/10/18 13:08 Microbiology 11/10/18 13:08 Blood Culture - Preliminary Blood - Peripheral Venous NO GROWTH OBTAINED AFTER 24 HOURS, INCUBATION TO CONTINUE FOR 4 DAYS. 11/10/18 12:30 Blood Culture - Preliminary Blood - Peripheral Venous NO GROWTH OBTAINED AFTER 24 HOURS, INCUBATION TO CONTINUE FOR 4 DAYS. Physical exam Alert and awake Anxious No distress HEENT--- no JVD Lungs---Bilateral scattered wheezes-- improved heart sounds regular abdominal-soft/ non tender. bs + extremities-No edema Neuro--alert and awake Assessment and plan Chest pain COPD exacerbation Anxiety Uncontrolled diabetes Opiate dependence Renal insufficiency Abnormal ct scan -- Continue present care Improved taper steroids Monitor blood sugar- better Cardiology/pulmonary on case PEt scan/ as out pt for abnormal ct scan DVT prophylaxis Drug screen pending . Will follow discussed with nursing Staff also
--- NOTE | 2018-11-12 11:53 | PN ---
Progress Note (short form) - Note Progress Note: s: no palps dizzy; sob/cp about the same o: Vital Signs Period Temp Pulse Resp BP Sys/Maier Pulse Ox Last 24 Hr 98.2 F-98.4 F 62-92 14-18 134-159/73-91 100 nad no jvd rrr nl s1, s2 no mrg diminished air movement, wheezing, nl effort + bs soft nt nd ext with e/c/c no carotid bruit aaox3 no jaundice, diaphoresis +chest wall tenderness Current Medications Generic Name Dose Route Start Last Admin Trade Name Jimmy PRN Reason Stop Dose Admin Amlodipine Besylate 10 mg 11/11/18 10:00 11/12/18 09:43 Norvasc - PO 10 mg DAILY JOHNNY Administration Atorvastatin Calcium 80 mg 11/11/18 22:00 11/11/18 22:06 Lipitor - PO 80 mg HS JOHNNY Administration Chlorthalidone 25 mg 11/11/18 10:00 11/12/18 09:44 Hygroton - PO 25 mg DAILY JOHNNY Administration Divalproex Sodium 500 mg 11/11/18 22:00 11/11/18 21:50 Depakote *Er* - PO 500 mg HS JOHNNY Administration Fentanyl 1 patch 11/13/18 15:30 Duragesic 25mcg Patch - TD Q72H JOHNNY Gabapentin 200 mg 11/11/18 06:00 11/12/18 05:44 Neurontin - PO 200 mg TID JOHNNY Administration Heparin Sodium (Porcine) 5,000 unit 11/11/18 10:00 11/12/18 09:43 Heparin - SQ 5,000 unit BID JOHNNY Administration Levofloxacin 500 mg in 100 mls @ 100 mls/hr 11/11/18 10:00 11/12/18 09:46 Levaquin 500 Mg Premixed Ivpb - IVPB 100 mls/hr DAILY JOHNNY Administration Protocol Insulin Aspart 1 vial 11/11/18 11:00 11/12/18 11:21 Novolog Vial Sliding Scale - SQ Not Given ACHS [facility] Protocol Insulin Detemir 50 units 11/11/18 07:00 11/12/18 06:05 Levemir Vial SQ 50 units BID@0700,2200 JOHNNY Administration Methylprednisolone Sodium Succinate 60 mg 11/11/18 09:00 11/12/18 09:43 Solu-Medrol - IVPUSH 60 mg Q6H-IV JOHNNY Administration Metoprolol Succinate 100 mg 11/11/18 10:00 11/12/18 09:44 Toprol Xl - PO 100 mg DAILY JOHNNY Administration Miscellaneous 1 each 11/11/18 07:18 Duragesic Patch Waste TD PRN PRN PATCH REMOVAL Nitroglycerin 0.4 mg 11/11/18 04:58 11/12/18 11:22 Nitrostat - SL 0.4 mg Q2H PRN Administration FOR CHEST PAIN Pantoprazole Sodium 40 mg 11/11/18 10:00 11/12/18 09:43 Protonix - PO 40 mg DAILY JOHNNY Administration Ticagrelor 90 mg 11/11/18 10:00 11/12/18 09:44 Brilinta - PO 90 mg BID JOHNNY Administration Valsartan 40 mg 11/11/18 10:00 11/12/18 09:44 Diovan - PO 40 mg DAILY JOHNNY Administration CBC, BMP 11/10/18 13:08 11/10/18 13:08 ecg: sr, nl intervals, no ischemic changes tele: sr echo 10/2018: tds; nl lv, rv tds, mild mr/ar Echo post CABG msh: bline nl EF 55%. nl rv. sev lae. mod MR, 1+ ar, mild-mod TR , 1+ phtn cath WP 11/2016: 20% LM, 60% pLAD ISR, 90% dLAD, 95% ISR OM1, 95% ISR, mRCA, 40 % dRCA ISR, 50% rpda, 70% rt post AV continuation. ct chest: no chf a/p: 58 y.o. 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 CP -atypical cp, reproducible, seems msk from coughing/copd. Ce's neg, no signs acs. sob, acute copd: -no signs chf, agree with tx of copd CAD s/p multiple pci and cabg -as above -cont home meds, statin, bb, imdur. allergic to asa so continue brilinta HTN - cont bb, arb, ccb HL - on statin ckd: -cr at baseline
[2018-11-12] MEDS ORDERED: oxyCODONE HCL 5 MG TABLET PO PRN (12:11)
[2018-11-12] MEDS ORDERED: ACETAMINOPHEN 325 MG TABLET (FP) PO PRN (12:11)
[2018-11-12] MEDS: oxyCODONE HCL 5 MG TABLET PO PRN ×3 (12:19→21:18)
[2018-11-12] MEDS: ACETAMINOPHEN 325 MG TABLET (FP) PO PRN ×2 (12:20→16:46)
--- NOTE | 2018-11-12 14:01 | PN ---
Progress Note (short form) - Note Progress Note: Breathing feels a little better today, but not at baseline. Still some residual cough and wheezing. Intake & Output 11/09/18 11/10/18 11/11/18 11/12/18 23:59 23:59 23:59 23:59 Intake Total 250 890 240 Output Total 320 Balance 250 570 240 Weight 197 lb Last Vital Signs Temp Pulse Resp BP Pulse Ox 98.2 F 75 15 155/99 100 11/12/18 09:00 11/12/18 09:00 11/12/18 09:00 11/12/18 09:00 11/12/18 09:00 Active Medications Acetaminophen (Tylenol -) 325 mg PO Q4H PRN PRN Reason: PAIN 1-5 Last Admin: 11/12/18 12:20 Dose: 325 mg Amlodipine Besylate (Norvasc -) 10 mg PO DAILY [facility] Last Admin: 11/12/18 09:43 Dose: 10 mg Atorvastatin Calcium (Lipitor -) 80 mg PO HS [facility] Last Admin: 11/11/18 22:06 Dose: 80 mg Chlorthalidone (Hygroton -) 25 mg PO DAILY [facility] Last Admin: 11/12/18 09:44 Dose: 25 mg Divalproex Sodium (Depakote *Er* -) 500 mg PO HS [facility] Last Admin: 11/11/18 21:50 Dose: 500 mg Gabapentin (Neurontin -) 200 mg PO TID [facility] Last Admin: 11/12/18 05:44 Dose: 200 mg Heparin Sodium (Porcine) (Heparin -) 5,000 unit SQ BID [facility] Last Admin: 11/12/18 09:43 Dose: 5,000 unit Levofloxacin (Levaquin 500 Mg Premixed Ivpb -) 500 mg in 100 mls @ 100 mls/hr IVPB DAILY [facility]; Protocol Last Admin: 11/12/18 09:46 Dose: 100 mls/hr Insulin Aspart (Novolog Vial Sliding Scale -) 1 vial SQ ACHS [facility]; Protocol Last Admin: 11/12/18 11:21 Dose: Not Given Insulin Detemir (Levemir Vial) 50 units SQ BID@0700,2200 [facility] Last Admin: 11/12/18 06:05 Dose: 50 units Methylprednisolone Sodium Succinate (Solu-Medrol -) 60 mg IVPUSH Q6H-IV [facility] Last Admin: 11/12/18 09:43 Dose: 60 mg Metoprolol Succinate (Toprol Xl -) 100 mg PO DAILY [facility] Last Admin: 11/12/18 09:44 Dose: 100 mg Miscellaneous (Duragesic Patch Waste) 1 each TD PRN PRN PRN Reason: PATCH REMOVAL Nitroglycerin (Nitrostat -) 0.4 mg SL Q2H PRN PRN Reason: FOR CHEST PAIN Last Admin: 11/12/18 11:22 Dose: 0.4 mg Oxycodone HCl (Roxicodone -) 5 mg PO Q4H PRN PRN Reason: PAIN 1-5 Last Admin: 11/12/18 12:19 Dose: 5 mg Pantoprazole Sodium (Protonix -) 40 mg PO DAILY [facility] Last Admin: 11/12/18 09:43 Dose: 40 mg Ticagrelor (Brilinta -) 90 mg PO BID [facility] Last Admin: 11/12/18 09:44 Dose: 90 mg Valsartan (Diovan -) 40 mg PO DAILY [facility] Last Admin: 11/12/18 09:44 Dose: 40 mg Gen: NAD at rest Heart: RRR Lung: bilateral rhonchi, few scattered wheezes Abd: soft, nontender Ext: no edema Laboratory Results - last 24 hr 11/11/18 11/11/18 11/11/18 01:59 05:27 16:59 POC Glucometer > 400 > 400 81.53716 11/11/18 21:49 POC Glucometer 130.26914 A/P Acute on Chronic Hypoxic and Hypercapneic Respiratory Failure Acute COPD Exacerbation CAD s/p CABG Acute on Chronic Renal Failure DM h/o CVA Nonspecific Lung Nodule - Will wean medrol today - inhaled bronchodilators - O2 to keep Spo2 >90% - monitor urine output, creatinine - glucose control while on systemic steroids - outpt PFTs and f/u - DVT prophylaxis - will need outpt f/u of lung nodule Dr Herman
[2018-11-12 15:59] LABS: COCAINE, UR NEGATIVE ng/ml (CUTOFF=300); METHADONE, UR NEGATIVE ng/ml (CUTOFF=300); OPIATES, URI NEGATIVE ng/ml (CUTOFF=300); PHENCYCLIDINE,URINE NEGATIVE ng/ml (CUTOFF=25); URINE AMPHETAMINES NEGATIVE ng/ml (CUTOFF=500); URINE BARBITURATES NEGATIVE ng/ml (CUTOFF=200); URINE BENZODIAZEPINES NEGATIVE ng/ml (CUTOFF=200)
[2018-11-12] MEDS ORDERED: methylPREDNISolone NA SUCC 40 MG/1 ML VIAL IVPUSH SCH (18:00)
[2018-11-12] MEDS ORDERED: NITROGLYCERIN SUBLINGUAL 1/150 0.4 MG TAB SL PRN (19:57)
[2018-11-12] MEDS ORDERED: FENTANYL PATCH WASTE TD PRN (19:57)
[2018-11-12] MEDS: DIVALPROEX NA *ER* EXTEND REL 500 MG TABLET.SA (FP) PO SCH (21:16)
[2018-11-12] MEDS: ATORVASTATIN CA 80 MG TABLET (FP) PO SCH (21:17)
[2018-11-12] MEDS ORDERED: INSULIN SLIDING SCALE (NOVOLOG) 1 VIAL SQ SCH (22:00)
--- NOTE | 2018-11-12 22:24 | CONSULT ---
Consult Consult Specialty:: endocrine Referred by:: cande Mittal Reason for Consultation:: uncontrolled dm/non compliance - History of Present Illness Chief Complaint: high sugars History of Present Illness: 58 year old female, with a significant past medical history of DM 2,Asthma, COPD (on 3L O2 at home, requiring multiple intubations), [place] x7, HTN, HLD, CAD (s /p stent in 2012 and quadruple CABG at [facility]), CVA x7 (with residual L sided weakness), DM, GERD, anxiety who presents with chest wall pain,stabing feeling sharp and extending to back. has had elevated sugars and feel its likely food and medication related compliance.she denies nause vomiting or blurred vision. - History Source History Provided By: Patient - Past Medical History [employer]: Yes: CVA, TIA Cardio/Vascular: Yes: CAD (s/p stent, restonisis and cardiac cath in 2012.), HTN , Hyperlipdemia Pulmonary: Yes: COPD Gastrointestinal: Yes: GERD Psych: Yes: Anxiety, Other (chronic pain syndrome) Musculoskeletal: Yes: Chronic low back pain, Other (lumbar radiculopathy) Endocrine: Yes: Diabetes Mellitus - Past Surgical History Past Surgical History: Yes: CABG, Stent - Alcohol/Substance Use Hx Alcohol Use: No - Smoking History Smoking history: Former smoker Have you smoked in the past 12 months: No Aproximately how many cigarettes per day: 4 If you are a former smoker, when did you quit?: 04/2016 - Social History ADL: Independent History of Recent Travel: No Home Medications - Allergies Allergies/Adverse Reactions: Allergies Allergy/AdvReac Type Severity Reaction Status Date / Time benztropine mesylate Allergy Severe Swelling Verified 11/10/18 13:09 [From Cogentin] haloperidol lactate Allergy Severe Difficulty Verified 11/10/18 13:09 [From Haldol] Breathing aspirin Allergy Verified 11/10/18 13:09 Penicillins Allergy Verified 11/10/18 13:09 - Home Medications Home Medications: Ambulatory Orders Atorvastatin Ca [Lipitor] 80 mg PO DAILY 12/20/15 Insulin Detemir [Levemir Flextouch] 50 units SQ BID 12/20/15 Metoprolol Succinate [Toprol Xl] 100 mg PO DAILY 12/20/15 Nitroglycerin 0.4 mg SL Q2H PRN 03/03/16 FENTANYL 25mcg PATCH [DURAGESIC 25mcg PATCH -] 1 each TD Q72H 05/11/16 Pantoprazole Sodium [Protonix -] 40 mg PO DAILY 05/11/16 Cyclobenzaprine HCl 10 mg PO BID PRN 11/10/18 Ferrous Sulfate 325 mg PO DAILY 11/10/18 Isosorbide Mononitrate 10 mg PO DAILY 11/10/18 Oxycodone HCl/Acetaminophen [Percocet 5-325 mg Tablet] 1 tab PO TID PRN Family Disease History - Family Disease History Family Disease History: Heart Disease: Father ([place] age 70's), Mother ( [place], breast- age 60's), Brother, Sister, [place]: Mother Review of Systems - Review of Systems Constitutional: reports: Weakness Eyes: reports: No Symptoms HENT: reports: No Symptoms Neck: reports: No Symptoms Cardiovascular: reports: Shortness of Breath Respiratory: reports: Exercise Intolerance, Orthopnea, SOB on Exertion Gastrointestinal: reports: Bloating Genitourinary: reports: Frequency Musculoskeletal: reports: Back Pain, Extremity Pain, Joint Swelling, Muscle Pain , Muscle Cramps Neurological: reports: Unsteady Gait, Weakness Endocrine: reports: Excessive Sweating, Unexplained Weight Gain Physical Exam Vital Signs: Vital Signs Temperature 98.2 F 11/12/18 21:43 Pulse Rate 80 11/12/18 21:43 Respiratory Rate 20 11/12/18 21:43 Blood Pressure 134/80 11/12/18 21:43 O2 Sat by Pulse Oximetry (%) 100 11/12/18 19:59 Constitutional: Yes: Anxious Eyes: Yes: EOM Intact HENT: Yes: Normocephalic Neck: Yes: Trachea Midline Cardiovascular: Yes: Regular Rate and Rhythm Respiratory: Yes: CTA Bilaterally Gastrointestinal: Yes: Normal Bowel Sounds, Abdomen, Obese ...Rectal Exam: Yes: Deferred Renal/: Yes: WNL Musculoskeletal: Yes: Joint Stiffness, Joint Swelling, Muscle Pain, Muscle Weakness Extremities: Yes: WNL Edema: No Neurological: Yes: Alert, Oriented Labs: CBC, BMP 11/10/18 13:08 Problem List - Problems (1) Type 2 diabetes mellitus with diabetic nephropathy Code(s): E11.21 - TYPE 2 DIABETES MELLITUS WITH DIABETIC NEPHROPATHY (2) Respiratory distress Code(s): R06.00 - DYSPNEA, UNSPECIFIED (3) Tachycardia Code(s): R00.0 - TACHYCARDIA, UNSPECIFIED (4) Acute bronchitis Code(s): J20.9 - ACUTE BRONCHITIS, UNSPECIFIED (5) CAD (coronary artery disease) Code(s): I25.10 - ATHSCL HEART DISEASE OF [place] CORONARY ARTERY W/O ANG PCTRS Assessment/Plan Current Active Problems Acute on chronic respiratory failure with hypoxia and hypercapnia (Acute) [id number] kidney injury (Acute) Asthma (Acute) Respiratory distress (Acute) Tachycardia (Acute) dm2 ckd,diabetic neuropathy cad ashd hyperlipidemia Laboratory Results - last 24 hr 11/11/18 11/11/18 11/11/18 01:59 05:27 16:59 POC Glucometer > 400 > 400 81.75443 Opiates Screen Methadone Screen Barbiturate Screen Phencyclidine Screen Ur Amphetamines Screen MDMA (Ecstasy) Screen Benzodiazepines Screen Cocaine Screen U Marijuana (THC) Screen 11/11/18 11/12/18 11/12/18 21:49 05:44 14:40 POC Glucometer 130.31806 232.42715 Opiates Screen Negative Methadone Screen Negative Barbiturate Screen Negative Phencyclidine Screen Negative Ur Amphetamines Screen Negative MDMA (Ecstasy) Screen Negative Benzodiazepines Screen Negative Cocaine Screen Negative U Marijuana (THC) Screen Negative 11/12/18 20:55 POC Glucometer 271.85249 Opiates Screen Methadone Screen Barbiturate Screen Phencyclidine Screen Ur Amphetamines Screen MDMA (Ecstasy) Screen Benzodiazepines Screen Cocaine Screen U Marijuana (THC) Screen Laboratory Tests 11/11/18 11/11/18 11/11/18 05:30 12:37 21:49 POC Glucometer 215.86083 130.11157 Hemoglobin A1c % 15.0 H 11/12/18 11/12/18 05:44 20:55 POC Glucometer 232.06564 271.43623 Hemoglobin A1c % plan: bgm qid novolog insulin doses levemir 50 units bid steroid sensitivity likely to requir more coverage consider cgms as outpatient if compliance improves
[2018-11-13] MEDS: oxyCODONE HCL 5 MG TABLET PO PRN ×4 (01:36→22:35)
[2018-11-13] MEDS: methylPREDNISolone NA SUCC 40 MG/1 ML VIAL IVPUSH SCH ×2 (02:00→10:39)
[2018-11-13] MEDS: GABAPENTIN 100 MG CAPSULE (FP) PO SCH ×3 (06:17→22:36)
[2018-11-13] MEDS: INSULIN (LEVEMIR) 100 UNITS/ML UNITS SQ SCH ×2 (06:18→22:46)
[2018-11-13] MEDS: INSULIN SLIDING SCALE (NOVOLOG) 1 VIAL SQ SCH ×4 (06:18→22:36)
[2018-11-13] MEDS: ACETAMINOPHEN 325 MG TABLET (FP) PO PRN ×3 (06:28→22:35)
[2018-11-13] MEDS: amLODIPine BESYLATE 10 MG TABLET (FP) PO SCH (10:37)
[2018-11-13] MEDS: VALSARTAN 40 MG TABLET (FP) PO SCH (10:37)
[2018-11-13] MEDS: PANTOPRAZOLE 40 MG TABLET (FP) PO SCH (10:37)
[2018-11-13] MEDS: HEPARIN NA (PORCINE) 5,000 UNITS/ML 1ML VIAL SQ SCH ×2 (10:39→22:35)
[2018-11-13] MEDS: CHLORTHALIDONE 25 MG TABLET PO SCH (10:41)
[2018-11-13] MEDS: TICAGRELOR 90 MG TABLET PO SCH ×2 (10:41→22:52)
--- NOTE | 2018-11-13 11:52 | PN ---
Progress Note (short form) - Note Progress Note: still coughing- but better- productive of dark phlegm Vital Signs - 24 hr 11/12/18 11/12/18 11/12/18 13:00 16:00 19:59 Temperature 98.0 F Pulse Rate 68 62 68 Respiratory 20 20 20 Rate Blood Pressure 145/94 126/79 140/82 O2 Sat by Pulse 100 Oximetry (%) 11/12/18 11/13/18 11/13/18 21:43 00:00 02:00 Temperature 98.2 F 98.4 F Pulse Rate 80 78 76 Respiratory 20 20 20 Rate Blood Pressure 134/80 130/70 128/54 L O2 Sat by Pulse Oximetry (%) 11/13/18 04:33 Temperature Pulse Rate 74 Respiratory 18 Rate Blood Pressure 124/62 O2 Sat by Pulse Oximetry (%) Current Medications Generic Name Dose Route Start Last Admin Trade Name Freq PRN Reason Stop Dose Admin Acetaminophen 325 mg 11/12/18 19:57 11/13/18 10:38 Tylenol - PO 325 mg Q4H PRN Administration PAIN 1-5 Amlodipine Besylate 10 mg 11/13/18 10:00 11/13/18 10:37 Norvasc - PO 10 mg DAILY JOHNNY Administration Atorvastatin Calcium 80 mg 11/12/18 22:00 11/12/18 21:17 Lipitor - PO 80 mg HS JOHNNY Administration Chlorthalidone 25 mg 11/13/18 10:00 11/13/18 10:41 Hygroton - PO 25 mg DAILY JOHNNY Administration Divalproex Sodium 500 mg 11/12/18 22:00 11/12/18 21:16 Depakote *Er* - PO 500 mg HS JOHNNY Administration Gabapentin 200 mg 11/12/18 22:00 11/13/18 06:17 Neurontin - PO 200 mg TID JOHNNY Administration Heparin Sodium (Porcine) 5,000 unit 11/12/18 22:00 11/13/18 10:39 Heparin - SQ 5,000 unit BID JOHNNY Administration Levofloxacin 500 mg in 100 mls @ 100 mls/hr 11/13/18 10:00 11/13/18 10:39 Levaquin 500 Mg Premixed Ivpb - IVPB 100 mls/hr DAILY JOHNNY Administration Protocol Insulin Aspart 1 vial 11/12/18 22:31 11/13/18 06:18 Novolog Vial Sliding Scale - SQ 12 units ACHS JOHNNY Administration Protocol Insulin Detemir 50 units 11/12/18 22:00 11/13/18 06:18 Levemir Vial SQ 50 units BID@0700,2200 JOHNNY Administration Methylprednisolone Sodium Succinate 40 mg 11/13/18 02:00 11/13/18 10:39 Solu-Medrol - IVPUSH 40 mg Q8H-IV JOHNNY Administration Metoprolol Succinate 100 mg 11/13/18 10:00 11/13/18 10:37 Toprol Xl - PO 100 mg DAILY JOHNNY Administration Nitroglycerin 0.4 mg 11/12/18 19:57 Nitrostat - SL Q2H PRN FOR CHEST PAIN Oxycodone HCl 5 mg 11/12/18 19:57 11/13/18 10:37 Roxicodone - PO 5 mg Q4H PRN Administration PAIN 1-5 Pantoprazole Sodium 40 mg 11/13/18 10:00 11/13/18 10:37 Protonix - PO 40 mg DAILY JOHNNY Administration Ticagrelor 90 mg 11/12/18 22:00 11/13/18 10:41 Brilinta - PO 90 mg BID JOHNNY Administration Valsartan 40 mg 11/13/18 10:00 11/13/18 10:37 Diovan - PO 40 mg DAILY JOHNNY Administration Laboratory Results - last 24 hr 11/11/18 11/11/18 11/12/18 16:59 21:49 05:44 POC Glucometer 81.45256 130.02169 232.04457 Opiates Screen Methadone Screen Barbiturate Screen Phencyclidine Screen Ur Amphetamines Screen MDMA (Ecstasy) Screen Benzodiazepines Screen Cocaine Screen U Marijuana (THC) Screen 11/12/18 11/12/18 11/13/18 14:40 20:55 06:13 POC Glucometer 271.92593 383 Opiates Screen Negative Methadone Screen Negative Barbiturate Screen Negative Phencyclidine Screen Negative Ur Amphetamines Screen Negative MDMA (Ecstasy) Screen Negative Benzodiazepines Screen Negative Cocaine Screen Negative U Marijuana (THC) Screen Negative Physical exam Alert and awake Anxious No distress HEENT--- no JVD Lungs---Bilateral scattered wheezes-- improved heart sounds regular abdominal-soft/ non tender. bs + extremities-No edema Neuro--alert and awake Assessment and plan Chest pain COPD exacerbation Anxiety Uncontrolled diabetes Opiate dependence Renal insufficiency Abnormal ct scan -- Continue present care Improved taper steroids Monitor blood sugar- better Cardiology/pulmonary on case PEt scan/ as out pt for abnormal ct scan DVT prophylaxis Drug screen noted Will follow discussed with nursing Staff also Problem List - Problems (1) Acute on chronic respiratory failure with hypoxia and hypercapnia Code(s): J96.21 - ACUTE AND CHRONIC RESPIRATORY FAILURE WITH HYPOXIA; J96.22 - ACUTE AND CHRONIC RESPIRATORY FAILURE WITH HYPERCAPNIA (2) [id number] kidney injury Code(s): N17.9 - ACUTE KIDNEY FAILURE, UNSPECIFIED; N18.9 - CHRONIC KIDNEY DISEASE, UNSPECIFIED (3) Respiratory distress Code(s): R06.00 - DYSPNEA, UNSPECIFIED (4) Tachycardia Code(s): R00.0 - TACHYCARDIA, UNSPECIFIED (5) Type 2 diabetes mellitus with diabetic nephropathy Code(s): E11.21 - TYPE 2 DIABETES MELLITUS WITH DIABETIC NEPHROPATHY
--- NOTE | 2018-11-13 13:51 | PN ---
Progress Note (short form) - Note Progress Note: PULMONARY MODEST SUBJECTIVE IMPROVEMENT VSS/AFEBRILE ANICTERIC SCATTERED RHONCHI RIGHT MID/LOWER LUNG FIELD S1S2 BS+ NO EDEMA LABS/MEDS/MICRO/NOTES/IMAGES REVIEWED Acute on Chronic Hypoxic and Hypercapneic Respiratory Failure Acute COPD Exacerbation CAD s/p CABG Acute on Chronic Renal Failure DM h/o CVA Nonspecific Lung Nodule - medrol changed to prednisone - inhaled bronchodilators - O2 to keep Spo2 >90% - monitor urine output, creatinine - glucose control while on systemic steroids - outpt PFTs and f/u - DVT prophylaxis - will need outpt f/u of lung nodule Neela HART MD
[2018-11-13] MEDS: predniSONE 20 MG TABLET (UD) PO SCH (15:16)
[2018-11-13] MEDS ORDERED: fentaNYL 25mcg/hr PATCH.TD72 TD SCH (15:30)
[2018-11-13] MEDS: ATORVASTATIN CA 80 MG TABLET (FP) PO SCH (22:36)
[2018-11-13] MEDS: DIVALPROEX NA *ER* EXTEND REL 500 MG TABLET.SA (FP) PO SCH (22:52)
[2018-11-14] MEDS: oxyCODONE HCL 5 MG TABLET PO PRN ×4 (06:28→21:06)
[2018-11-14] MEDS: ACETAMINOPHEN 325 MG TABLET (FP) PO PRN ×4 (06:28→21:05)
[2018-11-14] MEDS: GABAPENTIN 100 MG CAPSULE (FP) PO SCH ×3 (06:29→21:09)
[2018-11-14] MEDS: INSULIN SLIDING SCALE (NOVOLOG) 1 VIAL SQ SCH ×4 (06:35→21:15)
[2018-11-14] MEDS: INSULIN (LEVEMIR) 100 UNITS/ML UNITS SQ SCH ×2 (06:37→21:09)
[2018-11-14 08:31] LABS: HEMATOCRIT 35.9 % (32.4-45.2); HEMOGLOBIN 12.4 GM/dL (10.7-15.3); MCH 30.1 pg (25.7-33.7); MCHC 34.4 g/dl (32.0-36.0); MEAN CELL VOLUME 87.5 fl (80-96); MEAN PLT VOLUME 8.7 fl (7.5-11.1); PLATELET COUNT 305 K/MM3 (134-434); RBC 4.11 M/mm3 (3.60-5.2); RDW 15.3 % (11.6-15.6); WHITE BLOOD COUNT 13.5 K/mm3 (4.0-10.0)
[2018-11-14 09:04] LABS: ALBUMIN 2.8 g/dl (3.4-5.0); ALK PHOS 100 U/L (45-117); ANION GAP 10 MMOL/L (8-16); BILIRUBIN,TOTAL 0.2 mg/dL (0.2-1); BLOOD UREA NITROGEN 60 mg/dL (7-18); CALCIUM 8.4 mg/dL (8.5-10.1); CHLORIDE 97 mmol/L (98-107); CO2 30 mmol/L (21-32); CREATININE 1.8 mg/dL (0.55-1.3); GLUCOSE,RANDOM 200 mg/dL (74-106); POTASSIUM 4.1 mmol/L (3.5-5.1); SGOT/AST 7 U/L (15-37); SGPT/ALT 18 U/L (13-61); SODIUM 137 mmol/L (136-145); TOT PROT 6.1 g/dl (6.4-8.2)
[2018-11-14] MEDS ORDERED: PT OWN MED DRAWER 7, Y5N ONE (09:07)
[2018-11-14] MEDS: VALSARTAN 40 MG TABLET (FP) PO SCH (09:20)
[2018-11-14] MEDS: amLODIPine BESYLATE 10 MG TABLET (FP) PO SCH (09:20)
[2018-11-14] MEDS: PANTOPRAZOLE 40 MG TABLET (FP) PO SCH (09:20)
[2018-11-14] MEDS: HEPARIN NA (PORCINE) 5,000 UNITS/ML 1ML VIAL SQ SCH ×2 (09:21→21:11)
[2018-11-14] MEDS: TICAGRELOR 90 MG TABLET PO SCH ×2 (09:21→21:09)
[2018-11-14] MEDS: predniSONE 20 MG TABLET (UD) PO SCH (09:21)
[2018-11-14] MEDS: CHLORTHALIDONE 25 MG TABLET PO SCH (09:29)
--- NOTE | 2018-11-14 11:21 | PN ---
Progress Note (short form) - Note Progress Note: sob better, decreased coughing Vital Signs - 24 hr 11/13/18 11/13/18 11/13/18 15:37 18:30 21:00 Temperature 98.3 F 98.0 F Pulse Rate 68 62 Respiratory 19 18 18 Rate Blood Pressure 134/69 136/75 O2 Sat by Pulse 100 Oximetry (%) 11/14/18 07:00 Temperature 98.1 F Pulse Rate 79 Respiratory 18 Rate Blood Pressure 143/74 O2 Sat by Pulse Oximetry (%) Current Medications Generic Name Dose Route Start Last Admin Trade Name Freq PRN Reason Stop Dose Admin Acetaminophen 325 mg 11/12/18 19:57 11/14/18 06:28 Tylenol - PO 325 mg Q4H PRN Administration PAIN 1-5 Amlodipine Besylate 10 mg 11/13/18 10:00 11/14/18 09:20 Norvasc - PO 10 mg DAILY JOHNNY Administration Atorvastatin Calcium 80 mg 11/12/18 22:00 11/13/18 22:36 Lipitor - PO 80 mg HS JOHNNY Administration Chlorthalidone 25 mg 11/13/18 10:00 11/14/18 09:29 [place]groton - PO 25 mg DAILY JOHNNY Administration Divalproex Sodium 500 mg 11/12/18 22:00 11/13/18 22:52 Depakote *Er* - PO 500 mg HS JOHNNY Administration Gabapentin 200 mg 11/12/18 22:00 11/14/18 06:29 Neurontin - PO 200 mg TID JOHNNY Administration Heparin Sodium (Porcine) 5,000 unit 11/12/18 22:00 11/14/18 09:21 Heparin - SQ 5,000 unit BID JOHNNY Administration Levofloxacin 500 mg in 100 mls @ 100 mls/hr 11/13/18 10:00 11/14/18 09:21 Levaquin 500 Mg Premixed Ivpb - IVPB 100 mls/hr DAILY JOHNNY Administration Protocol Insulin Aspart 1 vial 11/14/18 00:48 11/14/18 06:35 Novolog Vial Sliding Scale - SQ 6 units ACHS JOHNNY Administration Protocol Insulin Detemir 40 units 11/14/18 00:48 11/14/18 06:37 Levemir Vial SQ 40 units BID@0700,2200 JOHNNY Administration Metoprolol Succinate 100 mg 11/13/18 10:00 11/14/18 09:20 Toprol Xl - PO 100 mg DAILY JOHNNY Administration Nitroglycerin 0.4 mg 11/12/18 19:57 Nitrostat - SL Q2H PRN FOR CHEST PAIN Oxycodone HCl 5 mg 11/12/18 19:57 11/14/18 06:28 Roxicodone - PO 5 mg Q4H PRN Administration PAIN 1-5 Pantoprazole Sodium 40 mg 11/13/18 10:00 11/14/18 09:20 Protonix - PO 40 mg DAILY JOHNNY Administration Prednisone 40 mg 11/13/18 14:00 11/14/18 09:21 Deltasone - PO 40 mg DAILY JOHNNY Administration Ticagrelor 90 mg 11/12/18 22:00 11/14/18 09:21 Brilinta - PO 90 mg BID JOHNNY Administration Valsartan 40 mg 11/13/18 10:00 11/14/18 09:20 Diovan - PO 40 mg DAILY JOHNNY Administration Laboratory Results - last 24 hr 11/13/18 11/13/18 11/13/18 11:30 17:20 22:33 WBC RBC Hgb Hct MCV MCH MCHC RDW Plt Count MPV Sodium Potassium Chloride Carbon Dioxide Anion Gap BUN Creatinine Creat Clearance w eGFR POC Glucometer 99 122 356 Random Glucose Calcium Total Bilirubin AST ALT Alkaline Phosphatase Total Protein Albumin 11/14/18 11/14/18 11/14/18 06:33 08:00 08:00 WBC 13.5 H RBC 4.11 Hgb 12.4 Hct 35.9 MCV 87.5 MCH 30.1 MCHC 34.4 RDW 15.3 Plt Count 305 MPV 8.7 Sodium 137 Potassium 4.1 Chloride 97 L Carbon Dioxide 30 Anion Gap 10 BUN 60 H Creatinine 1.8 H Creat Clearance w eGFR 29.00 POC Glucometer 273 Random Glucose 200 H Calcium 8.4 L Total Bilirubin 0.2 AST 7 L ALT 18 Alkaline Phosphatase 100 Total Protein 6.1 L Albumin 2.8 L Physical exam Alert and awake Anxious No distress HEENT--- no JVD Lungs---Bilateral scattered wheezes-- improved heart sounds regular abdominal-soft/ non tender. bs + extremities-No edema Neuro--alert and awake Assessment and plan Chest pain COPD exacerbation Anxiety Uncontrolled diabetes Opiate dependence Renal insufficiency Abnormal ct scan -- Continue present care Improved taper steroids- on po prednisone Monitor blood sugar- better Cardiology/pulmonary on case PEt scan/ as out pt for abnormal ct scan DVT prophylaxis Drug screen noted dc plan tomorrow on po prednisone Problem List - Problems (1) Acute on chronic respiratory failure with hypoxia and hypercapnia Code(s): J96.21 - ACUTE AND CHRONIC RESPIRATORY FAILURE WITH HYPOXIA; J96.22 - ACUTE AND CHRONIC RESPIRATORY FAILURE WITH HYPERCAPNIA (2) [id number] kidney injury Code(s): N17.9 - ACUTE KIDNEY FAILURE, UNSPECIFIED; N18.9 - CHRONIC KIDNEY DISEASE, UNSPECIFIED (3) Respiratory distress Code(s): R06.00 - DYSPNEA, UNSPECIFIED (4) Tachycardia Code(s): R00.0 - TACHYCARDIA, UNSPECIFIED (5) Type 2 diabetes mellitus with diabetic nephropathy Code(s): E11.21 - TYPE 2 DIABETES MELLITUS WITH DIABETIC NEPHROPATHY
--- NOTE | 2018-11-14 13:06 | PN ---
Progress Note (short form) - Note Progress Note: PULMONARY MODEST SUBJECTIVE IMPROVEMENT VSS/AFEBRILE ANICTERIC SCATTERED RHONCHI RIGHT MID/LOWER LUNG FIELD S1S2 BS+ NO EDEMA LABS/MEDS/MICRO/NOTES/IMAGES REVIEWED Acute on Chronic Hypoxic and Hypercapneic Respiratory Failure Acute COPD Exacerbation CAD s/p CABG Acute on Chronic Renal Failure DM h/o CVA Nonspecific Lung Nodule - medrol changed to prednisone - inhaled bronchodilators - O2 to keep Spo2 >90% - monitor urine output, creatinine - glucose control while on systemic steroids - outpt PFTs and f/u - DVT prophylaxis - will need outpt f/u of lung nodule - discharge planning Neela HART MD
[2018-11-14] MEDS: DIVALPROEX NA *ER* EXTEND REL 500 MG TABLET.SA (FP) PO SCH (21:09)
[2018-11-14] MEDS: ATORVASTATIN CA 80 MG TABLET (FP) PO SCH (21:09)
[2018-11-15] MEDS: NICOTINE 14 MG/24 HOURS TOPICAL PATCH TD SCH ×2 (00:33→09:58)
[2018-11-15] MEDS: INSULIN (LEVEMIR) 100 UNITS/ML UNITS SQ SCH (06:49)
[2018-11-15] MEDS: oxyCODONE HCL 5 MG TABLET PO PRN ×2 (06:49→15:40)
[2018-11-15] MEDS: ACETAMINOPHEN 325 MG TABLET (FP) PO PRN ×2 (06:49→15:41)
[2018-11-15] MEDS: GABAPENTIN 100 MG CAPSULE (FP) PO SCH ×2 (06:49→15:05)
[2018-11-15] MEDS: INSULIN SLIDING SCALE (NOVOLOG) 1 VIAL SQ SCH ×3 (06:50→17:50)
[2018-11-15] MEDS ORDERED: PT OWN MED DRAWER 7, Y5N ONE ×2 (09:43→15:03)
[2018-11-15] MEDS: PANTOPRAZOLE 40 MG TABLET (FP) PO SCH (09:56)
[2018-11-15] MEDS: predniSONE 20 MG TABLET (UD) PO SCH (09:56)
[2018-11-15] MEDS: CHLORTHALIDONE 25 MG TABLET PO SCH (09:57)
[2018-11-15] MEDS: HEPARIN NA (PORCINE) 5,000 UNITS/ML 1ML VIAL SQ SCH (09:57)
[2018-11-15] MEDS: VALSARTAN 40 MG TABLET (FP) PO SCH (09:57)
[2018-11-15] MEDS: TICAGRELOR 90 MG TABLET PO SCH (09:57)
[2018-11-15] MEDS: amLODIPine BESYLATE 10 MG TABLET (FP) PO SCH (09:57)
--- NOTE | 2018-11-15 10:20 | PN ---
Progress Note (short form) - Note Progress Note: PULMONARY States breathing slowly improving. Still some cough and wheezing. Vital Signs Period Temp Pulse Resp BP Sys/Maier Pulse Ox Last 24 Hr 97.9 F-98.5 F 60-86 20-20 118-134/66-71 99 Gen: NAD at rest Heart: RRR Lung: less wheezes Abd: soft, nontender Ext: no edema CBC, BMP 11/14/18 08:00 11/14/18 08:00 Active Medications Acetaminophen (Tylenol -) 325 mg PO Q4H PRN PRN Reason: PAIN 1-5 Last Admin: 11/15/18 06:49 Dose: 325 mg Amlodipine Besylate (Norvasc -) 10 mg PO DAILY [facility] Last Admin: 11/15/18 09:57 Dose: 10 mg Atorvastatin Calcium (Lipitor -) 80 mg PO HS [facility] Last Admin: 11/14/18 21:09 Dose: 80 mg Chlorthalidone (Hygroton -) 25 mg PO DAILY [facility] Last Admin: 11/15/18 09:57 Dose: 25 mg Divalproex Sodium (Depakote *Er* -) 500 mg PO [facility] Last Admin: 11/14/18 21:09 Dose: 500 mg Gabapentin (Neurontin -) 200 mg PO TID [facility] Last Admin: 11/15/18 06:49 Dose: 200 mg Heparin Sodium (Porcine) (Heparin -) 5,000 unit SQ BID [facility] Last Admin: 11/15/18 09:57 Dose: 5,000 unit Insulin Aspart (Novolog Vial Sliding Scale -) 1 vial SQ ACHS [facility]; Protocol Last Admin: 11/15/18 06:50 Dose: 6 units Insulin Detemir (Levemir Vial) 40 units SQ BID@0700,2200 [facility] Last Admin: 11/15/18 06:49 Dose: 40 units Levofloxacin (Levaquin -) 500 mg PO DAILY [facility] Last Admin: 11/15/18 09:56 Dose: 500 mg Metoprolol Succinate (Toprol Xl -) 100 mg PO DAILY [facility] Last Admin: 11/15/18 09:56 Dose: 100 mg Nicotine (Nicoderm Patch -) 14 mg TD DAILY [facility] Last Admin: 11/15/18 09:58 Dose: 14 mg Nitroglycerin (Nitrostat -) 0.4 mg SL Q2H PRN PRN Reason: FOR CHEST PAIN Oxycodone HCl (Roxicodone -) 5 mg PO Q4H PRN PRN Reason: PAIN 1-5 Last Admin: 11/15/18 06:49 Dose: 5 mg Pantoprazole Sodium (Protonix -) 40 mg PO DAILY [facility] Last Admin: 11/15/18 09:56 Dose: 40 mg Prednisone (Deltasone -) 40 mg PO DAILY [facility] Last Admin: 11/15/18 09:56 Dose: 40 mg Ticagrelor (Brilinta -) 90 mg PO BID [facility] Last Admin: 11/15/18 09:57 Dose: 90 mg Valsartan (Diovan -) 40 mg PO DAILY [facility] Last Admin: 11/15/18 09:57 Dose: 40 mg A/P Acute on Chronic Hypoxic and Hypercapneic Respiratory Failure improving Acute COPD Exacerbation CAD s/p CABG Acute on Chronic Renal Failure DM h/o CVA Nonspecific Lung Nodule - prednisone taper - inhaled bronchodilators - O2 to keep Spo2 >90% - monitor urine output, creatinine - glucose control while on systemic steroids - outpt PFTs and f/u - DVT prophylaxis - will need outpt f/u of lung nodule - d/c planning
--- NOTE | 2018-11-15 11:21 | DS ---
Physical Examination Vital Signs: Vital Signs Temperature 98.5 F 11/15/18 06:45 Pulse Rate 86 11/15/18 06:45 Respiratory Rate 20 11/15/18 06:45 Blood Pressure 118/69 11/15/18 06:45 O2 Sat by Pulse Oximetry (%) 99 11/14/18 20:36 Findings/Remarks: patient seen and examined Feels much better overall still reports weak Unsteady gait Possible to short-term rehabilitation Chart reviewed All follow-ups noted Constitutional: Yes: No Distress Eyes: Yes: Conjunctiva Clear Neck: Yes: Supple Cardiovascular: Yes: Regular Rate and Rhythm Respiratory: Yes: Rhonchi Gastrointestinal: Yes: Soft Edema: No Neurological: Yes: Alert Labs: CBC, BMP 11/14/18 08:00 11/14/18 08:00 Discharge Summary Reason For Visit: ASTHMA Current Active Problems Acute on chronic respiratory failure with hypoxia and hypercapnia (Acute) [id number] kidney injury (Acute) Asthma (Acute) Respiratory distress (Acute) Tachycardia (Acute) Type 2 diabetes mellitus with diabetic nephropathy (Acute) Hospital Course: admitted due to shortness of breath//COPD exac Patient treated with antibiotics and steroids Got better cardiology and pulmonary followed CT chest--- abnormal--- follow-up CT chest//PET scan as outpatient strongly advised to Follow-up with pulmonary/ as well as PMD For short-term rehabilitation medications reconcilled taper steroids Slowly monitor blood sugar Discussed with nursing staff also as well as case management Anticipate discharge later today. counseling about smoking cessation also provided. Condition: Improved - Instructions Disposition: NURSING HOME FACILITY - Home Medications Comprehensive Discharge Medication List: Ambulatory Orders Atorvastatin Ca [Lipitor] 80 mg PO DAILY 12/20/15 Metoprolol Succinate [Toprol Xl] 100 mg PO DAILY 12/20/15 Pantoprazole Sodium [Protonix -] 40 mg PO DAILY 05/11/16 Ferrous Sulfate 325 mg PO DAILY 11/10/18 Isosorbide Mononitrate 10 mg PO DAILY 11/10/18 Oxycodone HCl/Acetaminophen [Percocet 5-325 mg Tablet] 1 tab PO TID PRN Acetaminophen [Tylenol .Regular Strength -] 325 mg PO Q4H PRN tablet 11/15/18 Amlodipine Besylate [Norvasc -] 10 mg PO DAILY tablet 11/15/18 Chlorthalidone [Hygroton -] 25 mg PO DAILY tablet 11/15/18 Divalproex *ER* [Depakote *ER* -] 500 mg PO HS tablet.sa 11/15/18 Gabapentin [Neurontin -] 200 mg PO TID capsule 11/15/18 Heparin - 5,000 unit SQ BID vial 11/15/18 Insulin (Levemir) [Levemir Vial] 40 units SQ BID@0700,2200 units 11/15/18 Nicotine Patch [Nicoderm Patch -] 14 mg TD DAILY patch 11/15/18 Nitroglycerin Sublingual [Nitrostat -] 0.4 mg SL Q2H PRN tab 11/15/18 Ticagrelor [Brilinta -] 90 mg PO BID tablet 11/15/18 Valsartan [Diovan] 40 mg PO DAILY tablet 11/15/18 levoFLOXacin [Levaquin -] 500 mg PO DAILY 3 Days #3 tablet 11/15/18 predniSONE [Deltasone -] 40 mg PO DAILY #30 tablet 11/15/18
[2018-11-15 17:12] VITALS: BP 125/61; PULSE 65; TEMP 98.8
== END 2018-11-15 19:08 | DRG 189 ==
LOC: JER 11:27 → JERBED 15:35 → J5S 18:29 → J2W 11-11 01:56 → J8W 11-13 05:43
PROVIDERS: ADMIT Internal Medicine; ATTEND Internal Medicine
DX: J96.22 Acute and chronic respiratory failure with hypercapnia (principal); I69.354 Hemiplegia and hemiparesis following cerebral infarction affecting left non-dominant side; N17.9 Acute kidney failure, unspecified; J44.1 Chronic obstructive pulmonary disease with (acute) exacerbation; E87.1 Hypo-osmolality and hyponatremia; F11.20 Opioid dependence, uncomplicated; J96.21 Acute and chronic respiratory failure with hypoxia; Z99.81 Dependence on supplemental oxygen; I25.10 Atherosclerotic heart disease of native coronary artery without angina pectoris; I25.2 Old myocardial infarction; Z95.1 Presence of aortocoronary bypass graft; K21.9 Gastro-esophageal reflux disease without esophagitis; F41.9 Anxiety disorder, unspecified; E78.5 Hyperlipidemia, unspecified; Z88.0 Allergy status to penicillin; Z79.4 Long term (current) use of insulin; R00.0 Tachycardia, unspecified; E11.22 Type 2 diabetes mellitus with diabetic chronic kidney disease; I12.9 Hypertensive chronic kidney disease with stage 1 through stage 4 chronic kidney disease, or unspecified chronic kidney disease; N18.9 Chronic kidney disease, unspecified; F32.9 Major depressive disorder, single episode, unspecified; E66.9 Obesity, unspecified; E11.65 Type 2 diabetes mellitus with hyperglycemia; R07.89 Other chest pain; R91.1 Solitary pulmonary nodule; E11.21 Type 2 diabetes mellitus with diabetic nephropathy; E11.40 Type 2 diabetes mellitus with diabetic neuropathy, unspecified; R26.81 Unsteadiness on feet; Z68.32 Body mass index [BMI] 32.0-32.9, adult
CPT/HCPCS: 36415; 71045-TC-FY; 71250-TC; 80053; 80307; 81003; 81015; 82803; 82962; 83036; 83735; 83880; 84484; 85025; 85027; 85610; 85730; 86850; 86900; 86901; 87040; 87086; 87804; 93005; 93010; 93306-TC; 97116-GP; 97161-GP; 99283-25; J1644